=== PATIENT | female | born 1930 | race Two or more races ===

== ENCOUNTER 2017-10-18 14:05 | Inpatient (IN) | payer MEDICARE, MEDICAID ==
[~2017-10-18] VITALS: Ht 152.4 cm; Wt 77.1 kg
[~2017-10-18 14:05] MED LIST: BYSTOLIC 2.5MG2.5 MG ORAL; CULTURELLE1 EACH ORAL; PEPTO-BISM262 MG/15 ORAL; SYNTHROID25 MCG ORAL; Sodium Chloride 500ML 500 ML IV ONE
--- NOTE | 2017-10-18 14:12 | Emergency Room Report ---
History of Present Illness General Source: Family Member, EMS Present Illness HPI The patient presents with syncope. Apparently she's been ill for one week. She 's had nausea vomiting and diarrhea. She's incontinent of urine and stool. She was helped to the ground by family members. There's no trauma. Paramedics found her with low blood pressure 80. They started giving her fluids up. Her blood pressure was better after receiving 100 mils of normal saline IV. There is a language barrier. The patient has a history of hypertension. There was a fall with R shoulder fx several months ago. Still with intermittent pain. Denies pain unless moves arm. No blood in stool. No recent fevers. No cough. Allergies: Coded Allergies: No Known Allergies (Unverified , 03/17/15) Patient History Limited by: language barrier Past Medical History: see triage record, other - fx R shoulder Social History: Denies: smoking Social History Narrative with family - speaks Moroccan Reviewed Nursing Documentation: PMH: Agreed, PSxH: Agreed Nursing Documentation-PMH Hx Cancer: No Hx Gastrointestinal Problems: No Hx Neurological Problems: No Review of Systems All Other Systems: limited Physical Exam Vital Signs Date Time Temp Pulse Resp B/P (MAP) Pulse Ox O2 Delivery O2 Flow Rate FiO2 10/18/17 14:40 98.1 70 18 89/40 95 Room Air Sp02 EP Interpretation: reviewed, abnormal - interpreted low by me General Appearance: well appearing, no apparent distress, GCS 15 Head: normocephalic Eyes: bilateral eye normal inspection, bilateral eye PERRL, bilateral eye EOMI ENT: moist mucus membranes Neck: supple Respiratory: lungs clear, normal breath sounds Cardiovascular #1: regular rate, rhythm Cardiovascular #2: 2+ radial (R) Gastrointestinal: normal inspection, normal bowel sounds, non tender, no mass, non-distended Musculoskeletal: back normal, gait/station normal, normal range of motion - except for R arm, but fairly good PROM with min tenderness Neurologic: alert, oriented x3, slitter and rewinder III-XII nml as tested, motor strength/tone normal, DTRs symmetric, sensory intact, cerebellar normal, speech normal Psychiatric: mood/affect normal Skin: normal inspection, warm/dry Medical Decision Making Diagnostic Impression: Primary Impression: Syncope Qualified Codes: R55 - Syncope and collapse Additional Impressions: Gastroenteritis Hypotension (arterial) Qualified Codes: I95.89 - Other hypotension Hyponatremia ER Course The patient presents with syncope after program of one week's nausea vomiting diarrhea. She was hypertensive in the field. Differential includes acute myocardial infarction, arrhythmia, dehydration, gastroenteritis amongst others. She is a nonfocal neurologic exam at this time and does not require a CT of the head. She was evaluated with EKG, labs and urinalysis and x-ray. She will receive IV hydration and ondansetron. EKG without injury. CXR with tortuous trachea. Labs with normal WBC and H/H. Sodium is low. Stool sent to lab. No WBC. Improved BP with hydration. Evaluated by pipe cutter. Admit med Dr. Cisneros. Laboratory Tests Test 10/18/17 14:50 10/18/17 15:35 White Blood Count 7.5 K/UL (4.8-10.8) Red Blood Count 4.24 M/UL (4.20-5.40) Hemoglobin 12.3 G/DL (12.0-16.0) Hematocrit 37.2 % (37.0-47.0) Mean Corpuscular Volume 88 FL (80-99) Mean Corpuscular Hemoglobin 29.0 PG (27.0-31.0) Mean Corpuscular Hemoglobin Concent 33.1 G/DL (32.0-36.0) Red Cell Distribution Width 12.6 % (11.6-14.8) Platelet Count 245 K/UL (150-450) Mean Platelet Volume 6.2 FL (6.5-10.1) L Neutrophils (%) (Auto) 70.0 % (45.0-75.0) Lymphocytes (%) (Auto) 17.6 % (20.0-45.0) L Monocytes (%) (Auto) 11.4 % (1.0-10.0) H Eosinophils (%) (Auto) 0.6 % (0.0-3.0) Basophils (%) (Auto) 0.4 % (0.0-2.0) Prothrombin Time 10.6 SEC (9.30-11.50) Prothrombin Time INR 1.0 (0.9-1.1) PTT 23 SEC (23-33) Sodium Level 128 MMOL/L (136-145) L Potassium Level 4.0 MMOL/L (3.5-5.1) Chloride Level 94 MMOL/L (98-107) L Carbon Dioxide Level 26 MMOL/L (21-32) Anion Gap 9 mmol/L (5-15) Blood Urea Nitrogen 17 mg/dL (7-18) Creatinine 1.2 MG/DL (0.55-1.30) Estimate Glomerular Filtration Rate mL/min (>60) Glucose Level 129 MG/DL (74-106) H Calcium Level 8.5 MG/DL (8.5-10.1) Total Bilirubin 0.5 MG/DL (0.2-1.0) Aspartate Amino Transferase (AST) 19 U/L (15-37) Alanine Aminotransferase (ALT) 22 U/L (12-78) Alkaline Phosphatase 50 U/L (46-116) Total Creatine Kinase 52 U/L (26-308) Troponin I 0.006 ng/mL (0.000-0.056) Pro-B-Type Natriuretic Peptide 709 pg/mL (0-125) H Total Protein 6.4 G/DL (6.4-8.2) Albumin 3.2 G/DL (3.4-5.0) L Globulin 3.2 g/dL Albumin/Globulin Ratio 1.0 (1.0-2.7) Lipase 279 U/L (73-393) Urine Color Yellow Urine Appearance Clear Urine pH 6 (4.5-8.0) Urine Specific [place] 1.015 (1.005-1.035) Urine Protein 2+ (NEGATIVE) H Urine Glucose (UA) Negative (NEGATIVE) Urine Ketones Negative (NEGATIVE) Urine Occult Blood 1+ (NEGATIVE) H Urine Nitrite Negative (NEGATIVE) Urine Bilirubin Negative (NEGATIVE) Urine Urobilinogen 1 MG/DL (0.0-1.0) H Urine Leukocyte Esterase 1+ (NEGATIVE) H Urine RBC 2-4 /HPF (0 - 2) H Urine WBC 2-4 /HPF (0 - 2) Urine Squamous Epithelial Cells Occasional /LPF Urine Bacteria Occasional /HPF (NONE) Urine Hyaline Casts 5-10 /LPF (NONE) H Urine Other Casts 0-2 /LPF (NONE) H Urine Mucus Moderate /LPF (NONE/OCC) H Microbiology Date/Time Source Procedure Growth Status 10/18/17 15:35 Anus WBC Smear - Final Complete EKG Diagnostic Results Rate: normal Rhythm: NSR ST Segments: no acute changes Rhythm Strip Diag. Results EP Interpretation: yes Rhythm: NSR, no PVC's, no ectopy Chest X-Ray Diagnostic Results Chest X-Ray Diagnostic Results : Chest X-Ray Ordered: Yes # of Views/Limited/Complete: 1 View Indication: Other Interpretation: no consolidation, no effusion, no pneumothorax, other - R shoulder fx Last Vital Signs Date Time Temp Pulse Resp B/P (MAP) Pulse Ox O2 Delivery O2 Flow Rate FiO2 10/18/17 15:15 68 18 117/40 99 Room Air 10/18/17 14:40 98.1 Status: improved Disposition: ADMITTED INPATIENT Condition: Serious Rachid Nazario M.D. Oct 18, 2017 14:12
[2017-10-18] MEDS ORDERED: Tubing IV Cassette IV ONE (14:57)
[2017-10-18 15:09] LABS: BASOPHILS % (AUTO) 0.4 % (0.0-2.0); EOSINOPHILS % (AUTO) 0.6 % (0.0-3.0); HEMATOCRIT 37.2 % (37.0-47.0); HEMOGLOBIN 12.3 G/DL (12.0-16.0); LYMPHOCYTES % (AUTO) 17.6 % (20.0-45.0); MEAN CORPUSCULAR VOLUME 88 FL (80-99); MONOCYTES % (AUTO) 11.4 % (1.0-10.0); PLATELET COUNT 245 K/UL (150-450); RED BLOOD COUNT 4.24 M/UL (4.20-5.40); RED CELL DISTRIBUTION WIDTH 12.6 % (11.6-14.8); WHITE BLOOD COUNT 7.5 K/UL (4.8-10.8)
[2017-10-18 15:15] VITALS: BP 117/40
[2017-10-18 15:26] LABS: ANION GAP 9 mmol/L (5-15); BLOOD UREA NITROGEN 17 mg/dL (7-18); CALCIUM 8.5 MG/DL (8.5-10.1); CARBON DIOXIDE 26 MMOL/L (21-32); CHLORIDE 94 MMOL/L (98-107); CREATININE 1.2 MG/DL (0.55-1.30); SODIUM 128 MMOL/L (136-145)
[2017-10-18 15:37] LABS: ALANINE AMINOTRANSFERASE 22 U/L (12-78); ALBUMIN 3.2 G/DL (3.4-5.0); ALKALINE PHOSPHATASE 50 U/L (46-116); ASPARTATE AMINO TRANSFERASE 19 U/L (15-37); BILIRUBIN,TOTAL 0.5 MG/DL (0.2-1.0); CREATINE KINASE 52 U/L (26-308)
[2017-10-18 15:52] LABS: APPEARANCE,URINE CLEAR; BILIRUBIN, URINE NEGATIVE (NEGATIVE); GLUCOSE, URINE (UA) NEGATIVE (NEGATIVE); KETONES,URINE NEGATIVE (NEGATIVE); LEUKOCYTE ESTERASE ,URINE 1+ (NEGATIVE); NITRITE,URINE NEGATIVE (NEGATIVE); PH,URINE 6 (4.5-8.0); PROTEIN,URINE 2+ (NEGATIVE); UROBILINOGEN,URINE 1 MG/DL (0.0-1.0)
[2017-10-18 15:57] LABS: COLOR,URINE YELLOW
[2017-10-18] MEDS ORDERED: Morphine Sulfate 2mg/ml Inj IVP PRN (17:00)
[2017-10-18] MEDS ORDERED: Albuterol/Ipratropium 3ml neb HHN PRN (17:00)
[2017-10-18] MEDS ORDERED: Miralax 17gm pkt ORAL PRN (17:00)
[2017-10-18 17:30] VITALS: BP 129/32
--- NOTE | 2017-10-18 17:42 | Cardiology Progress Note ---
Assessment/Plan Assessment/Plan [id number] continue ivf trop and orthostatic vital in am Objective Last 24 Hour Vital Signs Date Time Temp Pulse Resp B/P (MAP) Pulse Ox O2 Delivery O2 Flow Rate FiO2 10/18/17 15:15 68 18 117/40 99 Room Air 10/18/17 14:40 98.1 70 18 89/40 95 Room Air Laboratory Tests Test 10/18/17 14:50 10/18/17 15:35 White Blood Count 7.5 K/UL (4.8-10.8) Red Blood Count 4.24 M/UL (4.20-5.40) Hemoglobin 12.3 G/DL (12.0-16.0) Hematocrit 37.2 % (37.0-47.0) Mean Corpuscular Volume 88 FL (80-99) Mean Corpuscular Hemoglobin 29.0 PG (27.0-31.0) Mean Corpuscular Hemoglobin Concent 33.1 G/DL (32.0-36.0) Red Cell Distribution Width 12.6 % (11.6-14.8) Platelet Count 245 K/UL (150-450) Mean Platelet Volume 6.2 FL (6.5-10.1) L Neutrophils (%) (Auto) 70.0 % (45.0-75.0) Lymphocytes (%) (Auto) 17.6 % (20.0-45.0) L Monocytes (%) (Auto) 11.4 % (1.0-10.0) H Eosinophils (%) (Auto) 0.6 % (0.0-3.0) Basophils (%) (Auto) 0.4 % (0.0-2.0) Prothrombin Time 10.6 SEC (9.30-11.50) Prothromb Time International Ratio 1.0 (0.9-1.1) Activated Partial Thromboplast Time 23 SEC (23-33) Sodium Level 128 MMOL/L (136-145) L Potassium Level 4.0 MMOL/L (3.5-5.1) Chloride Level 94 MMOL/L (98-107) L Carbon Dioxide Level 26 MMOL/L (21-32) Anion Gap 9 mmol/L (5-15) Blood Urea Nitrogen 17 mg/dL (7-18) Creatinine 1.2 MG/DL (0.55-1.30) Estimat Glomerular Filtration Rate mL/min (>60) Glucose Level 129 MG/DL (74-106) H Calcium Level 8.5 MG/DL (8.5-10.1) Total Bilirubin 0.5 MG/DL (0.2-1.0) Aspartate Amino Transf (AST/SGOT) 19 U/L (15-37) Alanine Aminotransferase (ALT/SGPT) 22 U/L (12-78) Alkaline Phosphatase 50 U/L (46-116) Total Creatine Kinase 52 U/L (26-308) Troponin I 0.006 ng/mL (0.000-0.056) Pro-B-Type Natriuretic Peptide 709 pg/mL (0-125) H Total Protein 6.4 G/DL (6.4-8.2) Albumin 3.2 G/DL (3.4-5.0) L Globulin 3.2 g/dL Albumin/Globulin Ratio 1.0 (1.0-2.7) Lipase 279 U/L (73-393) Urine Color Yellow Urine Appearance Clear Urine pH 6 (4.5-8.0) Urine Specific [place] 1.015 (1.005-1.035) Urine Protein 2+ (NEGATIVE) H Urine Glucose (UA) Negative (NEGATIVE) Urine Ketones Negative (NEGATIVE) Urine Occult Blood 1+ (NEGATIVE) H Urine Nitrite Negative (NEGATIVE) Urine Bilirubin Negative (NEGATIVE) Urine Urobilinogen 1 MG/DL (0.0-1.0) H Urine Leukocyte Esterase 1+ (NEGATIVE) H Urine RBC 2-4 /HPF (0 - 2) H Urine WBC 2-4 /HPF (0 - 2) Urine Squamous Epithelial Cells Occasional /LPF Urine Bacteria Occasional /HPF (NONE) Urine Hyaline Casts 5-10 /LPF (NONE) H Urine Other Casts 0-2 /LPF (NONE) H Urine Mucus Moderate /LPF (NONE/OCC) H Microbiology Date/Time Source Procedure Growth Status 10/18/17 15:35 Anus WBC Smear - Final Complete MIKKI ABREU Oct 18, 2017 17:42
--- NOTE | 2017-10-18 17:45 | History and Physical ---
History of Present Illness General Date patient seen: Oct 18, 2017 Reason for Hospitalization: Syncope Present Illness HPI 86 year old patient with hx of HTN, hypothyroid, dementia, almost deaf, recent shoulder surgery, presented to [facility] – [place] with CC of syncope. Apparently she's been ill for one week. She's had nausea vomiting and diarrhea. She's incontinent of urine and stool. Paramedics found her with low systolic blood pressure of 80. They started giving her fluids up. She is admitted to telemetry for evaluation of syncope and ALOC. Allergies: Coded Allergies: No Known Allergies (Unverified , 03/17/15) Medication History Scheduled Bysto (Bystolic), 2.5 MG ORAL BID Lactobacillus Rhamnosus Gg* (Culturelle*), 1 TAB ORAL BID Levothyroxine Sodium* (Synthroid*), 25 MCG ORAL DAILY@0630 Scheduled PRN Bismuth Subsalicylate (Pepto-Bismol), 30 ML ORAL Q3H PRN for Diarrhea Miscellaneous Medications Unable to Obtain Medications (Unable To Obtain Meds), (Reported) Patient History Healthcare decision maker Resuscitation status Advanced Directive on File Past Medical/Surgical History Past Medical/Surgical History: (1) Hypothyroid (2) Hypertension (3) Deafness (4) Dementia Review of Systems Constitutional: Reports: no symptoms Eye: Reports: no symptoms ENT: Reports: no symptoms Physical Exam General Appearance: WD/WN Lines, tubes and drains: peripheral HEENT: normocephalic, atraumatic Neck: non-tender, normal alignment Respiratory/Chest: chest wall non-tender, lungs clear Cardiovascular/Chest: normal peripheral pulses, normal rate Abdomen: normal bowel sounds Genitourinary/Rectal: normal genital exam Extremities: normal range of motion Skin Exam: normal pigmentation Neurologic: electric range servicer II-XII grossly normal Last 24 Hour Vital Signs Date Time Temp Pulse Resp B/P (MAP) Pulse Ox O2 Delivery O2 Flow Rate FiO2 10/18/17 15:15 68 18 117/40 99 Room Air 10/18/17 14:40 98.1 70 18 89/40 95 Room Air Laboratory Tests Test 10/18/17 14:50 10/18/17 15:35 White Blood Count 7.5 K/UL (4.8-10.8) Red Blood Count 4.24 M/UL (4.20-5.40) Hemoglobin 12.3 G/DL (12.0-16.0) Hematocrit 37.2 % (37.0-47.0) Mean Corpuscular Volume 88 FL (80-99) Mean Corpuscular Hemoglobin 29.0 PG (27.0-31.0) Mean Corpuscular Hemoglobin Concent 33.1 G/DL (32.0-36.0) Red Cell Distribution Width 12.6 % (11.6-14.8) Platelet Count 245 K/UL (150-450) Mean Platelet Volume 6.2 FL (6.5-10.1) L Neutrophils (%) (Auto) 70.0 % (45.0-75.0) Lymphocytes (%) (Auto) 17.6 % (20.0-45.0) L Monocytes (%) (Auto) 11.4 % (1.0-10.0) H Eosinophils (%) (Auto) 0.6 % (0.0-3.0) Basophils (%) (Auto) 0.4 % (0.0-2.0) Prothrombin Time 10.6 SEC (9.30-11.50) Prothromb Time International Ratio 1.0 (0.9-1.1) Activated Partial Thromboplast Time 23 SEC (23-33) Sodium Level 128 MMOL/L (136-145) L Potassium Level 4.0 MMOL/L (3.5-5.1) Chloride Level 94 MMOL/L (98-107) L Carbon Dioxide Level 26 MMOL/L (21-32) Anion Gap 9 mmol/L (5-15) Blood Urea Nitrogen 17 mg/dL (7-18) Creatinine 1.2 MG/DL (0.55-1.30) Estimat Glomerular Filtration Rate mL/min (>60) Glucose Level 129 MG/DL (74-106) H Calcium Level 8.5 MG/DL (8.5-10.1) Total Bilirubin 0.5 MG/DL (0.2-1.0) Aspartate Amino Transf (AST/SGOT) 19 U/L (15-37) Alanine Aminotransferase (ALT/SGPT) 22 U/L (12-78) Alkaline Phosphatase 50 U/L (46-116) Total Creatine Kinase 52 U/L (26-308) Troponin I 0.006 ng/mL (0.000-0.056) Pro-B-Type Natriuretic Peptide 709 pg/mL (0-125) H Total Protein 6.4 G/DL (6.4-8.2) Albumin 3.2 G/DL (3.4-5.0) L Globulin 3.2 g/dL Albumin/Globulin Ratio 1.0 (1.0-2.7) Lipase 279 U/L (73-393) Urine Color Yellow Urine Appearance Clear Urine pH 6 (4.5-8.0) Urine Specific [place] 1.015 (1.005-1.035) Urine Protein 2+ (NEGATIVE) H Urine Glucose (UA) Negative (NEGATIVE) Urine Ketones Negative (NEGATIVE) Urine Occult Blood 1+ (NEGATIVE) H Urine Nitrite Negative (NEGATIVE) Urine Bilirubin Negative (NEGATIVE) Urine Urobilinogen 1 MG/DL (0.0-1.0) H Urine Leukocyte Esterase 1+ (NEGATIVE) H Urine RBC 2-4 /HPF (0 - 2) H Urine WBC 2-4 /HPF (0 - 2) Urine Squamous Epithelial Cells Occasional /LPF Urine Bacteria Occasional /HPF (NONE) Urine Hyaline Casts 5-10 /LPF (NONE) H Urine Other Casts 0-2 /LPF (NONE) H Urine Mucus Moderate /LPF (NONE/OCC) H Microbiology Date/Time Source Procedure Growth Status 10/18/17 15:35 Anus WBC Smear - Final Complete Height (Feet): 5 Weight (Pounds): 170 Medications Current Medications Medications (Trade) Dose Ordered Sig/Jone Route PRN Reason Start Time Stop Time Status Last Admin Dose Admin Acetaminophen (Tylenol) 650 mg Q4H PRN ORAL fever 10/18/17 17:00 11/17/17 16:59 Albuterol/ Ipratropium (Albuterol/ Ipratropium) 3 ml Q4H PRN HHN Shortness of Breath 10/18/17 17:00 10/23/17 16:59 Cefepime HCl 1 gm/ Dextrose 55 ml @ 110 mls/hr Q24H IVPB 10/18/17 21:00 10/25/17 20:59 UNV Heparin Sodium (Porcine) (Heparin 5000 units/ml) 5,000 units EVERY 12 HOURS SUBQ 10/18/17 21:00 11/17/17 20:59 Levothyroxine Sodium (Synthroid) 25 mcg DAILY@0630 ORAL 10/19/17 06:30 11/18/17 06:29 Morphine Sulfate (Morphine Sulfate) 2 mg Q4H PRN IVP Moderate Pain (Pain Scale 4-6) 10/18/17 17:00 10/25/17 16:59 Ondansetron HCl (Zofran) 4 mg Q6H PRN IVP Nausea & Vomiting 10/18/17 17:00 11/17/17 16:59 Phenazopyridine HCl (Pyridium) 100 mg DAILY PRN ORAL dysuria 10/18/17 17:00 11/17/17 16:59 Polyethylene Glycol (Miralax) 17 gm DAILYPRN PRN ORAL Constipation 10/18/17 17:00 11/17/17 16:59 Sodium Chloride 1,000 ml @ 300 mls/hr Q3H20M IV 10/18/17 14:15 11/17/17 14:14 10/18/17 17:00 Temazepam (Restoril) 15 mg HSPRN PRN ORAL Insomnia 10/18/17 17:00 10/25/17 16:59 Vancomycin HCl (Vanco rx to dose) 1 ea DAILY PRN MISC PER RX 10/18/17 17:15 11/17/17 17:14 Vancomycin HCl 1 gm/Dextrose 275 ml @ 183.3 mls/ hr Q24H IV 10/19/17 00:30 10/24/17 00:29 UNV Assessment/Plan Problem List: (1) Syncope ICD Codes: R55 - Syncope and collapse SNOMED: 650786550 Qualifiers: Qualified Codes: R55 - Syncope and collapse (2) Hyponatremia ICD Codes: E87.1 - Hypo-osmolality and hyponatremia SNOMED: 96352332 (3) Gastroenteritis ICD Codes: K52.9 - Noninfective gastroenteritis and colitis, unspecified SNOMED: 21583557 (4) Anemia ICD Codes: D64.9 - Anemia, unspecified SNOMED: 428009912 (5) Hypothyroid ICD Codes: E03.9 - Hypothyroidism, unspecified SNOMED: 27352780 (6) Hypertension ICD Codes: I10 - Essential (primary) hypertension SNOMED: 19736780 (7) Dementia ICD Codes: F03.90 - Unspecified dementia without behavioral disturbance SNOMED: 02714880 (8) Deafness ICD Codes: H91.90 - Unspecified hearing loss, unspecified ear SNOMED: 40612125 Assessment/Plan IV fluids telemetry monitoring GI w/u monitor BP cardio evaluation echo check Na hyponatremia w/u. RAMIRO CASAREZ Oct 18, 2017 17:45
[2017-10-18 18:00] VITALS: BP_SYST 100; BP_SYST 167; BP_DIAS 50; BP_DIAS 55
[2017-10-18] MEDS ORDERED: UNOBMED (19:11)
[2017-10-18] MEDS: Heparin 5000 units/ml inj SUBQ SCH (21:00)
[2017-10-18] MEDS ORDERED: Cefepime HCl 1 GM in D5W 55 ML IVPB SCH (22:00)
[2017-10-19] VITALS: BP 110/70
[2017-10-19] MEDS ORDERED: Vancomycin 1 GM in D5W 275 ML IVPB ONE ×2
[2017-10-19 01:21] VITALS: BP 138/98
--- NOTE | 2017-10-19 03:45 | Consultation ---
DATE OF CONSULTATION: 10/18/2017 CARDIOLOGY CONSULTATION CONSULTING PHYSICIAN: Dagoberto Galicia M.D. REFERRING PHYSICIAN: Jennifer Cisneros M.D. REASON FOR REFERRAL: Syncope. HISTORY OF PRESENT ILLNESS: This is a [place]-speaking elderly female, who is unable to provide much in terms of history mainly because of language barrier. Only limited information is available from the history of present illness is what was provided to the emergency room physician. The notation indicates the patient has been ill for approximately one week. She has had nausea, vomiting as well as diarrhea and has been incontinent of stool and urine. She has apparently had possibly a syncopal episode, was helped by family members. There was no trauma. Paramedics were summoned. They found the patient's blood pressure to be low in the 80s. Intravenous fluids were administered with improvement in the patient's blood pressure. The patient denies any chest pain or abdominal pain right now. Actually, to me, she denies any vomiting. She indicates she has had a history of significant diarrhea. PAST MEDICAL HISTORY: Positive for history of cellulitis, diarrhea, nausea, vomiting, gastroenteritis, hyponatremia, hypertension, hyperlipidemia, hypothyroidism, and morbid obesity. There is history of cardiac issues of which I am not aware of completely at this time. The patient also has a history of pulmonary fibrosis, osteoarthritis, and osteoporosis. ALLERGIES: She has no known drug allergies. SOCIAL HISTORY: Born in [place]. FAMILY HISTORY: Noncontributory. REVIEW OF SYSTEMS: GASTROINTESTINAL: As mentioned. GENITOURINARY: . PULMONARY: Denies any coughing or wheezing. CONSTITUTIONAL: No fevers. CARDIOVASCULAR: Denies any chest pains or palpitations. PHYSICAL EXAMINATION: GENERAL: Shows to be obese female, in no respiratory distress. NECK: Supple. No jugular venous distention is noted. LUNGS: Clear to auscultation and percussion. CARDIAC: S1 is normal. S2 is normal. Regular rate and rhythm. ABDOMEN: Soft and nontender. Positive bowel sounds. EXTREMITIES: There is no clubbing, cyanosis, or edema. NEUROLOGICAL: She is awake, alert, and responsive. Seems to move all four extremities. LABORATORY AND DIAGNOSTIC DATA: White count 7.5, hemoglobin 12.3, and platelet count 245. Sodium is 128, potassium 4.0, chloride 94, bicarbonate 26, BUN 17, creatinine 1.2, and glucose of 129. Troponin 0.06. ProBNP of 709. The liver function tests being normal. Her coags, INR 1.0 and PTT 23. Urinalysis shows 2 to 4 RBCs and 2 to 4 WBCs. Her EKG shows normal sinus rhythm, normal QRS axis. There is some nonspecific T-wave abnormalities being documented. ASSESSMENT: 1. Possible syncopal episode. 2. Hypotension secondary to volume depletion. 3. Volume depletion secondary to diarrhea and vomiting. 4. Hyponatremia. PLAN: This patient was seen in cardiac consultation. The patient does not seem to have any chest pain at this time. The patient's electrocardiogram is fairly unremarkable except for some nonspecific T-wave abnormalities. We will recommend continuation of intravenous fluids. Her blood pressure last year was listed as 160/64, and her first blood pressure documented here in the emergency room was 89/40 suggestive of volume depletion as a cause of her syncopal episode. She should be monitored on telemetry. Repeat EKG and troponin will be ordered, however, I suspect strongly that her symptoms are likely related to volume depletion secondary to possible gastroenteritis. Dagoberto Galicia M.D. DR: NEREIDA JOB#: [id number] CC:
[2017-10-19] MEDS ORDERED: Cefepime 1gm vial ONE (05:28)
[2017-10-19] MEDS ORDERED: Vancomycin 1gm inj IVPB ONE (05:29)
[2017-10-19] MEDS ORDERED: Levothyroxine 25mcg tab ORAL SCH (06:30)
[2017-10-19 08:00] VITALS: BP 117/57
[2017-10-19] MEDS: Heparin 5000 units/ml inj SUBQ SCH ×2 (08:49→20:58)
[2017-10-19 09:37] LABS: BASOPHILS % (AUTO) 0.6 % (0.0-2.0); EOSINOPHILS % (AUTO) 1.2 % (0.0-3.0); HEMATOCRIT 35.9 % (37.0-47.0); HEMOGLOBIN 11.5 G/DL (12.0-16.0); LYMPHOCYTES % (AUTO) 28.4 % (20.0-45.0); MEAN CORPUSCULAR VOLUME 90 FL (80-99); MONOCYTES % (AUTO) 10.8 % (1.0-10.0); NEUTROPHILS % (AUTO) 59.1 % (45.0-75.0); PLATELET COUNT 215 K/UL (150-450); RED BLOOD COUNT 3.99 M/UL (4.20-5.40); RED CELL DISTRIBUTION WIDTH 13.1 % (11.6-14.8); WHITE BLOOD COUNT 5.7 K/UL (4.8-10.8)
[2017-10-19 10:06] LABS: ALANINE AMINOTRANSFERASE 16 U/L (12-78); ALBUMIN 2.8 G/DL (3.4-5.0); ALBUMIN/GLOBULIN RATIO 0.9 (1.0-2.7); ALKALINE PHOSPHATASE 44 U/L (46-116); ANION GAP 8 mmol/L (5-15); ASPARTATE AMINO TRANSFERASE 18 U/L (15-37); BILIRUBIN,TOTAL 0.4 MG/DL (0.2-1.0); BLOOD UREA NITROGEN 15 mg/dL (7-18); CALCIUM 7.5 MG/DL (8.5-10.1); CARBON DIOXIDE 22 MMOL/L (21-32); CHLORIDE 99 MMOL/L (98-107); POTASSIUM 3.7 MMOL/L (3.5-5.1); SODIUM 129 MMOL/L (136-145)
--- NOTE | 2017-10-19 11:10 | Consultation ---
History of Present Illness General Date patient seen: Oct 19, 2017 Time patient seen: 11:01 Chief Complaint: Syncope Present Illness HPI 86 y/o F with hx of R shoulder fracture (several months ago), HTN, cellulitis, HLD, hypothyroidism, morbid obesity, pulmonary fibrosis, OA and osteoporosis is brought to ED by EMS on 10/18 with syncopal episode. Patient has been feeling ill for 1 week, having nausea, vomiting and diarrhea. EMS found patient with SBP 80s which improved to 100s after IVFs. No f/c, cough, CP, abd pain Afebrile here, no leukocytosis. Cdiff neg. Started on IV Vanco and CEfepime Family refers patient went to [facility] on 10/10 and told she had the Flu- per family no abx given, Rx theraflu- ?tamiflu Allergies: Coded Allergies: No Known Allergies (Unverified , 03/17/15) Medication History Scheduled Bysto (Bystolic), 2.5 MG ORAL BID Lactobacillus Rhamnosus Gg* (Culturelle*), 1 TAB ORAL BID Levothyroxine Sodium* (Synthroid*), 25 MCG ORAL DAILY@0630 Scheduled PRN Bismuth Subsalicylate (Pepto-Bismol), 30 ML ORAL Q3H PRN for Diarrhea Miscellaneous Medications Unable to Obtain Medications (Unable To Obtain Meds), (Reported) Patient History Healthcare decision maker Resuscitation status Advanced Directive on File No Patient History Narrative PHx: as above Shx: Denies: smoking, Russing speaking, born in [place] Fhx: non contributory Review of Systems ROS Narrative L knee pain As per HPI, otherwise negative Physical Exam Physical Exam Narrative GENERAL: Shows to be obese female, in no respiratory distress. NECK: Supple. No jugular venous distention is noted. LUNGS: Clear to auscultation and percussion. CARDIAC: S1 is normal. S2 is normal. Regular rate and rhythm. ABDOMEN: Soft and nontender. Positive bowel sounds. EXTREMITIES: There is no clubbing, cyanosis, or edema. L knee swelling and TTP NEUROLOGICAL: She is awake, alert, and responsive. Seems to move all four extremities. Last 24 Hour Vital Signs Date Time Temp Pulse Resp B/P (MAP) Pulse Ox O2 Delivery O2 Flow Rate FiO2 10/19/17 07:48 75 16 Room Air 21 1/3/18 04:00 76 10/19/17 01:31 98.0 74 18 138/98 97 Room Air 70 10/19/17 01:21 98.0 74 18 138/98 97 Room Air 10/19/17 00:00 98.0 70 18 110/70 97 Room Air 10/18/17 18:00 74 167/55 91 100/50 10/18/17 17:30 98.0 70 18 129/32 97 Room Air 10/18/17 15:15 68 18 117/40 99 Room Air 10/18/17 14:40 98.1 70 18 89/40 95 Room Air Intake and Output 10/18/17 10/19/17 19:00 07:00 Intake Total 0 ml Balance 0 ml Intake Oral 0 ml Laboratory Tests Test 10/18/17 14:50 10/18/17 15:35 10/19/17 08:15 White Blood Count 7.5 K/UL (4.8-10.8) 5.7 K/UL (4.8-10.8) Red Blood Count 4.24 M/UL (4.20-5.40) 3.99 M/UL (4.20-5.40) L Hemoglobin 12.3 G/DL (12.0-16.0) 11.5 G/DL (12.0-16.0) L Hematocrit 37.2 % (37.0-47.0) 35.9 % (37.0-47.0) L Mean Corpuscular Volume 88 FL (80-99) 90 FL (80-99) Mean Corpuscular Hemoglobin 29.0 PG (27.0-31.0) 28.7 PG (27.0-31.0) Mean Corpuscular Hemoglobin Concent 33.1 G/DL (32.0-36.0) 31.9 G/DL (32.0-36.0) L Red Cell Distribution Width 12.6 % (11.6-14.8) 13.1 % (11.6-14.8) Platelet Count 245 K/UL (150-450) 215 K/UL (150-450) Mean Platelet Volume 6.2 FL (6.5-10.1) L 6.0 FL (6.5-10.1) L Neutrophils (%) (Auto) 70.0 % (45.0-75.0) 59.1 % (45.0-75.0) Lymphocytes (%) (Auto) 17.6 % (20.0-45.0) L 28.4 % (20.0-45.0) Monocytes (%) (Auto) 11.4 % (1.0-10.0) H 10.8 % (1.0-10.0) H Eosinophils (%) (Auto) 0.6 % (0.0-3.0) 1.2 % (0.0-3.0) Basophils (%) (Auto) 0.4 % (0.0-2.0) 0.6 % (0.0-2.0) Prothrombin Time 10.6 SEC (9.30-11.50) Prothromb Time International Ratio 1.0 (0.9-1.1) Activated Partial Thromboplast Time 23 SEC (23-33) Sodium Level 128 MMOL/L (136-145) L 129 MMOL/L (136-145) L Potassium Level 4.0 MMOL/L (3.5-5.1) 3.7 MMOL/L (3.5-5.1) Chloride Level 94 MMOL/L (98-107) L 99 MMOL/L (98-107) Carbon Dioxide Level 26 MMOL/L (21-32) 22 MMOL/L (21-32) Anion Gap 9 mmol/L (5-15) 8 mmol/L (5-15) Blood Urea Nitrogen 17 mg/dL (7-18) 15 mg/dL (7-18) Creatinine 1.2 MG/DL (0.55-1.30) 1.0 MG/DL (0.55-1.30) Estimat Glomerular Filtration Rate mL/min (>60) mL/min (>60) Glucose Level 129 MG/DL (74-106) H 138 MG/DL (74-106) H Calcium Level 8.5 MG/DL (8.5-10.1) 7.5 MG/DL (8.5-10.1) L Total Bilirubin 0.5 MG/DL (0.2-1.0) 0.4 MG/DL (0.2-1.0) Aspartate Amino Transf (AST/SGOT) 19 U/L (15-37) 18 U/L (15-37) Alanine Aminotransferase (ALT/SGPT) 22 U/L (12-78) 16 U/L (12-78) Alkaline Phosphatase 50 U/L (46-116) 44 U/L (46-116) L Total Creatine Kinase 52 U/L (26-308) Troponin I 0.006 ng/mL (0.000-0.056) 0.015 ng/mL (0.000-0.056) Pro-B-Type Natriuretic Peptide 709 pg/mL (0-125) H 496 pg/mL (0-125) H Total Protein 6.4 G/DL (6.4-8.2) 5.8 G/DL (6.4-8.2) L Albumin 3.2 G/DL (3.4-5.0) L 2.8 G/DL (3.4-5.0) L Globulin 3.2 g/dL 3.0 g/dL Albumin/Globulin Ratio 1.0 (1.0-2.7) 0.9 (1.0-2.7) L Lipase 279 U/L (73-393) Urine Color Yellow Urine Appearance Clear Urine pH 6 (4.5-8.0) Urine Specific [place] 1.015 (1.005-1.035) Urine Protein 2+ (NEGATIVE) H Urine Glucose (UA) Negative (NEGATIVE) Urine Ketones Negative (NEGATIVE) Urine Occult Blood 1+ (NEGATIVE) H Urine Nitrite Negative (NEGATIVE) Urine Bilirubin Negative (NEGATIVE) Urine Urobilinogen 1 MG/DL (0.0-1.0) H Urine Leukocyte Esterase 1+ (NEGATIVE) H Urine RBC 2-4 /HPF (0 - 2) H Urine WBC 2-4 /HPF (0 - 2) Urine Squamous Epithelial Cells Occasional /LPF Urine Bacteria Occasional /HPF (NONE) Urine Hyaline Casts 5-10 /LPF (NONE) H Urine Other Casts 0-2 /LPF (NONE) H Urine Mucus Moderate /LPF (NONE/OCC) H Osmolality Pending Uric Acid Pending Magnesium Level 1.6 MG/DL (1.8-2.4) L Thyroid Stimulating Hormone (TSH) Pending Free Thyroxine Pending Free Triiodothyronine Pending Cortisol Pending Microbiology Date/Time Source Procedure Growth Status 10/18/17 15:35 Stool Clostridium difficile Toxin Assay - Final Complete 10/18/17 15:35 Anus WBC Smear - Final Complete Height (Feet): 5 Height (Inches): 0.00 Weight (Pounds): 170 Medications Current Medications Medications (Trade) Dose Ordered Sig/Jone Route PRN Reason Start Time Stop Time Status Last Admin Dose Admin Acetaminophen (Tylenol) 650 mg Q4H PRN ORAL fever 10/18/17 17:00 11/17/17 16:59 Albuterol/ Ipratropium (Albuterol/ Ipratropium) 3 ml Q4H PRN HHN Shortness of Breath 10/18/17 17:00 10/23/17 16:59 Cefepime HCl 1 gm/ Dextrose 55 ml @ 110 mls/hr Q24H IVPB 10/18/17 22:00 10/25/17 21:59 10/19/17 05:40 Heparin Sodium (Porcine) (Heparin 5000 units/ml) 5,000 units EVERY 12 HOURS SUBQ 10/18/17 21:00 11/17/17 20:59 10/19/17 08:49 Levothyroxine Sodium (Synthroid) 25 mcg DAILY@0630 ORAL 10/19/17 06:30 11/18/17 06:29 10/19/17 08:48 Morphine Sulfate (Morphine Sulfate) 2 mg Q4H PRN IVP Moderate Pain (Pain Scale 4-6) 10/18/17 17:00 10/25/17 16:59 Ondansetron HCl (Zofran) 4 mg Q6H PRN IVP Nausea & Vomiting 10/18/17 17:00 11/17/17 16:59 Phenazopyridine HCl (Pyridium) 100 mg DAILY PRN ORAL dysuria 10/18/17 17:00 11/17/17 16:59 Polyethylene Glycol (Miralax) 17 gm DAILYPRN PRN ORAL Constipation 10/18/17 17:00 11/17/17 16:59 Sodium Chloride 1,000 ml @ 300 mls/hr Q3H20M IV 10/18/17 14:15 11/17/17 14:14 10/18/17 17:00 Temazepam (Restoril) 15 mg HSPRN PRN ORAL Insomnia 10/18/17 17:00 10/25/17 16:59 Vancomycin HCl (Vanco rx to dose) 1 ea DAILY PRN MISC PER RX 10/18/17 17:15 11/17/17 17:14 Assessment/Plan Assessment/Plan Abx: IV Vanco 2- Cefepime /2- Assessment: Diarrhea- possible viral vs bacterial process, r/o Flu, r/o colitis -CDiff neg Afebrile, no leukocytosis -u/a neg ?REcent dx of Influenza at [facility]- unclear if traeted with Tamiflu (family said theraflu but it may have been tamiflu) ?Syncopal episode L knee pain- r/o fracture R shoulder fracture (several months ago), HTN, cellulitis, HLD, hypothyroidism , morbid obesity, pulmonary fibrosis, OA and osteoporosis Plan: -d/c IV Vanco and Cefepime #2 and switch to Ceftriaxone and Flagyl and start empiric Tamiflu pending flu -Influenza test -f/u Bcx, stool cx -xray L knee -Monitor CBC/BMP, temperatures -low threshold for CT abd/p if bloody stool, abd pain Thank you for this consultation. Will continue to follow along with you. Discussed with RN and family at bedside. Neli Shabazz M.D. Oct 19, 2017 11:10
[2017-10-19 12:00] VITALS: BP 158/73
--- NOTE | 2017-10-19 12:03 | Diagnostic Imaging Report ---
Indication: Shortness of breath Technique: One view of the chest Comparison: 06/27/2006 Findings: Mild interstitial prominence and central bronchial wall thickening are probably on the basis of senescent changes. No definite acute infiltrates, effusions, or congestion. There is a chronic appearing but ununited right humeral fracture. Atelectasis or scarring is seen in the left midlung Impression: No definite acute process. Findings as noted
[2017-10-19] MEDS: metroNIDAZOLE 500mg tab ORAL SCH ×3 (12:32→21:45)
--- NOTE | 2017-10-19 12:51 | Consultation ---
Consult Note Consult Note Asked to eval for low Na, The patient presents with syncope. Apparently she's been ill for one week. She 's had nausea vomiting and diarrhea. She's incontinent of urine and stool. She was helped to the ground by family members. There's no trauma. Paramedics found her with low blood pressure 80. They started giving her fluids up. Her blood pressure was better after receiving 100 mils of normal saline IV. There is a language barrier. The patient has a history of hypertension. There was a fall with R shoulder fx several months ago. Still with intermittent pain. Denies pain unless moves arm. No blood in stool. No recent fevers. No cough. Limited by: language barrier Social History Narrative with family - speaks Faroese PH: Gastroenteritis secondary to food-borne illness. Dehydration. Hyponatremia. Anemia. Hypertension. Hyperlipidemia. patient examined- data reviewed Assessment/Plan status: Low na, doubt depletional as Renal parameters WNL HypoTension on arrival likely Volume depletion, leading to syncope Vomiting and Diarrhea Low Mag and Low ca Sugg: Saline IV check Kusum U os Uric Acid monitor grace Vit D Mag per orders JAC ZARAGOZA Oct 19, 2017 12:52
--- NOTE | 2017-10-19 13:52 | Pulmonology Progress Note ---
Assessment/Plan Problems: (1) Syncope (2) Hyponatremia (3) Gastroenteritis (4) Anemia (5) Hypothyroid (6) Hypertension (7) Dementia (8) Deafness Assessment/Plan Na better continue fluids check electrolytes pt/ot advance diet dvt prophylaxis Subjective ROS Limited/Unobtainable: No Interval Events: feeling better Constitutional: Reports: no symptoms HEENT: Repors: no symptoms Allergies: Coded Allergies: No Known Allergies (Unverified , 03/17/15) Objective Last 24 Hour Vital Signs Date Time Temp Pulse Resp B/P (MAP) Pulse Ox O2 Delivery O2 Flow Rate FiO2 10/19/17 07:48 75 16 Room Air 21 10/19/17 04:00 76 10/19/17 01:31 98.0 74 18 138/98 97 Room Air 70 10/19/17 01:21 98.0 74 18 138/98 97 Room Air 10/19/17 00:00 98.0 70 18 110/70 97 Room Air 10/18/17 18:00 74 167/55 91 100/50 10/18/17 17:30 98.0 70 18 129/32 97 Room Air 10/18/17 15:15 68 18 117/40 99 Room Air 10/18/17 14:40 98.1 70 18 89/40 95 Room Air Intake and Output 10/18/17 10/19/17 19:00 07:00 Intake Total 0 ml Balance 0 ml Intake Oral 0 ml General Appearance: WD/WN HEENT: normocephalic, atraumatic Respiratory/Chest: chest wall non-tender, lungs clear Breasts: no masses Cardiovascular: normal peripheral pulses Abdomen: normal bowel sounds, soft, non tender Genitourinary: normal external genitalia Extremities: no cyanosis Skin: no rash Microbiology Date/Time Source Procedure Growth Status 10/18/17 15:35 Stool Clostridium difficile Toxin Assay - Final Complete 10/18/17 15:35 Anus WBC Smear - Final Complete Laboratory Tests 10/18/17 14:50: White Blood Count 7.5, Red Blood Count 4.24, Hemoglobin 12.3, Hematocrit 37.2, Mean Corpuscular Volume 88, Mean Corpuscular Hemoglobin 29.0, Mean Corpuscular Hemoglobin Concent 33.1, Red Cell Distribution Width 12.6, Platelet Count 245, Mean Platelet Volume 6.2L, Neutrophils (%) (Auto) 70.0, Lymphocytes (%) (Auto) 17.6L, Monocytes (%) (Auto) 11.4H, Eosinophils (%) (Auto) 0.6, Basophils (%) ( Auto) 0.4, Prothrombin Time 10.6, Prothromb Time International Ratio 1.0, Activated Partial Thromboplast Time 23, Sodium Level 128L, Potassium Level 4.0, Chloride Level 94L, Carbon Dioxide Level 26, Anion Gap 9, Blood Urea Nitrogen 17 , Creatinine 1.2, Estimat Glomerular Filtration Rate , Glucose Level 129H, Calcium Level 8.5, Total Bilirubin 0.5, Aspartate Amino Transf (AST/SGOT) 19, Alanine Aminotransferase (ALT/SGPT) 22, Alkaline Phosphatase 50, Total Creatine Kinase 52, Troponin I 0.006, Pro-B-Type Natriuretic Peptide 709H, Total Protein 6.4, Albumin 3.2L, Globulin 3.2, Albumin/Globulin Ratio 1.0, Lipase 279 10/18/17 15:35: Urine Color Yellow, Urine Appearance Clear, Urine pH 6, Urine Specific [place] 1.015, Urine Protein 2+H, Urine Glucose (UA) Negative, Urine Ketones Negative, Urine Occult Blood 1+H, Urine Nitrite Negative, Urine Bilirubin Negative, Urine Urobilinogen 1H, Urine Leukocyte Esterase 1+H, Urine RBC 2-4H, Urine WBC 2-4, Urine Squamous Epithelial Cells Occasional, Urine Bacteria Occasional, Urine Hyaline Casts 5-10H, Urine Other Casts 0-2H, Urine Mucus ModerateH 10/19/17 08:15: White Blood Count 5.7, Red Blood Count 3.99L, Hemoglobin 11.5L, Hematocrit 35.9L , Mean Corpuscular Volume 90, Mean Corpuscular Hemoglobin 28.7, Mean Corpuscular Hemoglobin Concent 31.9L, Red Cell Distribution Width 13.1, Platelet Count 215, Mean Platelet Volume 6.0L, Neutrophils (%) (Auto) 59.1, Lymphocytes (%) (Auto) 28.4, Monocytes (%) (Auto) 10.8H, Eosinophils (%) (Auto) 1.2, Basophils (%) (Auto) 0.6, Sodium Level 129L, Potassium Level 3.7, Chloride Level 99, Carbon Dioxide Level 22, Anion Gap 8, Blood Urea Nitrogen 15, Creatinine 1.0, Estimat Glomerular Filtration Rate , Glucose Level 138H, Calcium Level 7.5L, Total Bilirubin 0.4, Aspartate Amino Transf (AST/SGOT) 18, Alanine Aminotransferase (ALT/SGPT) 16, Alkaline Phosphatase 44L, Troponin I 0.015, Pro-B-Type Natriuretic Peptide 496H, Total Protein 5.8L, Albumin 2.8L, Globulin 3.0, Albumin/Globulin Ratio 0.9L, Osmolality 273L, Uric Acid 5.1, Magnesium Level 1.6L, Thyroid Stimulating Hormone (TSH) 1.626, Free Thyroxine 1.46, Free Triiodothyronine 1.9L, Cortisol [Pending] Current Medications Medications (Trade) Dose Ordered Sig/Jone Route PRN Reason Start Time Stop Time Status Last Admin Dose Admin Acetaminophen (Tylenol) 650 mg Q4H PRN ORAL fever 10/18/17 17:00 11/17/17 16:59 Albuterol/ Ipratropium (Albuterol/ Ipratropium) 3 ml Q4H PRN HHN Shortness of Breath 10/18/17 17:00 10/23/17 16:59 Ceftriaxone Sodium 1 gm/ Dextrose 55 ml @ 110 mls/hr Q24H IVPB 10/20/17 06:00 10/27/17 05:59 Ergocalciferol (Drisdol) 50,000 intlu QWEEK ORAL 10/19/17 14:00 11/18/17 13:59 Heparin Sodium (Porcine) (Heparin 5000 units/ml) 5,000 units EVERY 12 HOURS SUBQ 10/18/17 21:00 11/17/17 20:59 10/19/17 08:49 Levothyroxine Sodium (Synthroid) 25 mcg DAILY@0630 ORAL 10/19/17 06:30 11/18/17 06:29 10/19/17 08:48 Magnesium Sulfate 100 ml @ 100 mls/hr Q1H IVPB 10/19/17 14:00 10/19/17 15:59 Metronidazole (Flagyl) 500 mg Q8HR ORAL 10/19/17 12:00 10/26/17 11:59 10/19/17 12:32 Morphine Sulfate (Morphine Sulfate) 2 mg Q4H PRN IVP Moderate Pain (Pain Scale 4-6) 10/18/17 17:00 10/25/17 16:59 Ondansetron HCl (Zofran) 4 mg Q6H PRN IVP Nausea & Vomiting 10/18/17 17:00 11/17/17 16:59 Oseltamivir Phosphate (Tamiflu) 30 mg DAILY ORAL 10/19/17 13:00 10/24/17 12:59 Polyethylene Glycol (Miralax) 17 gm DAILYPRN PRN ORAL Constipation 10/18/17 17:00 11/17/17 16:59 Sodium Chloride 1,000 ml @ 100 mls/hr Q10H IV 10/19/17 14:15 11/18/17 14:14 Temazepam (Restoril) 15 mg HSPRN PRN ORAL Insomnia 10/18/17 17:00 10/25/17 16:59 RAMIRO CASAREZ Oct 19, 2017 13:52
[2017-10-19] MEDS ORDERED: Vitamin D 50,000 units cap ORAL SCH (14:00)
--- NOTE | 2017-10-19 14:12 | Diagnostic Imaging Report ---
Indication: Reason For Exam: PAIN Technique: 3 views of the left knee Comparison: None Findings: No suprapatellar effusion. No acute fractures. No dislocations. There is mild medial compartmental degenerative joint space narrowing. There is minimal lateral compartmental and patellofemoral degenerative proliferative change. No acute fractures. No dislocations. Impression: Mild degenerative changes. No acute bony trauma
[2017-10-19 16:00] VITALS: BP 167/75
--- NOTE | 2017-10-19 16:03 | Cardiology Report ---
APPROVED REPORT EKG Measurement Heart [id number] Normal sinus rhythm Normal ECG
--- NOTE | 2017-10-19 16:07 | Cardiology Report ---
APPROVED REPORT EKG Measurement Heart [id number] [place] [id number] Normal sinus rhythm Normal ECG
--- NOTE | 2017-10-19 16:21 | GI Initial Consult Note ---
Kylah Arango N.P. 10/19/17 1621: History of Present Illness General Date patient seen: Oct 19, 2017 Time patient seen: 16:14 Reason for Hospitalization: Syncope Referring physician: ADRIANA VERA Reason for Consultation: N/V/D Present Illness HPI The patient presents with syncope. Apparently she's been ill for one week. She 's had nausea vomiting and diarrhea. She's incontinent of urine and stool. She was helped to the ground by family members. There's no trauma. Paramedics found her with low blood pressure 80. They started giving her fluids up. Her blood pressure was better after receiving 100 mils of normal saline IV. There is a language barrier. The patient has a history of hypertension. There was a fall with R shoulder fx several months ago. Still with intermittent pain. Denies pain unless moves arm. No blood in stool. No recent fevers. No cough. GI consulted for possible gastroenteritis. HPI noted above. Pt seen on floor , awake A&Ox4 NAD with no active s/sx of N/V/D. Per RN report, patient has had no episodes of emesis or diarrhea. She currently receiving fluids, resting comfortably in bed. Pt no longer hypotensive. Unknown history of endoscopy / colonoscopies. Home Meds Active Scripts Bysto (Bystolic) 2.5 Mg Tab, 2.5 MG ORAL BID for 30 Days, TAB Prov:MIKKI ABREU 03/17/15 Levothyroxine Sodium* (SYNTHROID*) 25 Mcg Tab, 25 MCG ORAL DAILY@0630, #30 TAB Prov:MIKKI ABREU 03/17/15 Lactobacillus Rhamnosus Gg* (CULTURELLE*) 1 Tab Tab, 1 TAB ORAL BID for 14 Days , CAP Prov:MIKKI ABREU 03/17/15 Bismuth Subsalicylate (PEPTO-BISMOL) 30 Ml Susp, 30 ML ORAL Q3H Y for Diarrhea for 7 Days, ML Prov:MIKKI ABREU 03/17/15 Reported Medications Unable to Obtain Medications (UNABLE TO OBTAIN MEDS) 1 Ea Ea 10/18/17 Med list reviewed/reconciled: Yes Allergies: Coded Allergies: No Known Allergies (Unverified , 03/17/15) Patient History Limited by: language barrier History Provided By: Medical Record PMH Narrative Limited by: language barrier Past Medical History: see triage record, other - fx R shoulder Social History: Denies: smoking Social History Narrative with family - speaks Cambodian Reviewed Nursing Documentation: PMH: Agreed, PSxH: Agreed Nursing Documentation-PMH Hx Cancer: No Hx Gastrointestinal Problems: No Hx Neurological Problems: No Social History: Denies: smoking, alcohol use, drug use, other Review of Systems All Other Systems: negative except mentioned in HPI Physical Exam Vital Signs Date Time Temp Pulse Resp B/P (MAP) Pulse Ox O2 Delivery O2 Flow Rate FiO2 10/18/17 14:40 98.1 70 18 89/40 95 Room Air 10/19/17 07:48 21 Sp02 EP Interpretation: reviewed, normal Labs Laboratory Tests Test 10/19/17 08:15 White Blood Count 5.7 K/UL (4.8-10.8) Red Blood Count 3.99 M/UL (4.20-5.40) L Hemoglobin 11.5 G/DL (12.0-16.0) L Hematocrit 35.9 % (37.0-47.0) L Mean Corpuscular Volume 90 FL (80-99) Mean Corpuscular Hemoglobin 28.7 PG (27.0-31.0) Mean Corpuscular Hemoglobin Concent 31.9 G/DL (32.0-36.0) L Red Cell Distribution Width 13.1 % (11.6-14.8) Platelet Count 215 K/UL (150-450) Mean Platelet Volume 6.0 FL (6.5-10.1) L Neutrophils (%) (Auto) 59.1 % (45.0-75.0) Lymphocytes (%) (Auto) 28.4 % (20.0-45.0) Monocytes (%) (Auto) 10.8 % (1.0-10.0) H Eosinophils (%) (Auto) 1.2 % (0.0-3.0) Basophils (%) (Auto) 0.6 % (0.0-2.0) Sodium Level 129 MMOL/L (136-145) L Potassium Level 3.7 MMOL/L (3.5-5.1) Chloride Level 99 MMOL/L (98-107) Carbon Dioxide Level 22 MMOL/L (21-32) Anion Gap 8 mmol/L (5-15) Blood Urea Nitrogen 15 mg/dL (7-18) Creatinine 1.0 MG/DL (0.55-1.30) Estimat Glomerular Filtration Rate mL/min (>60) Glucose Level 138 MG/DL (74-106) H Osmolality 273 mOsm/kg (297-317) L Uric Acid 5.1 MG/DL (2.6-7.2) Calcium Level 7.5 MG/DL (8.5-10.1) L Magnesium Level 1.6 MG/DL (1.8-2.4) L Total Bilirubin 0.4 MG/DL (0.2-1.0) Aspartate Amino Transf (AST/SGOT) 18 U/L (15-37) Alanine Aminotransferase (ALT/SGPT) 16 U/L (12-78) Alkaline Phosphatase 44 U/L (46-116) L Troponin I 0.015 ng/mL (0.000-0.056) Pro-B-Type Natriuretic Peptide 496 pg/mL (0-125) H Total Protein 5.8 G/DL (6.4-8.2) L Albumin 2.8 G/DL (3.4-5.0) L Globulin 3.0 g/dL Albumin/Globulin Ratio 0.9 (1.0-2.7) L Thyroid Stimulating Hormone (TSH) 1.626 uiU/mL (0.358-3.740) Free Thyroxine 1.46 NG/DL (0.76-1.46) Free Triiodothyronine 1.9 pg/mL (2.3-4.2) L Cortisol Pending General Appearance: well appearing, no apparent distress, alert, other - overweight Head: normocephalic EENT: PERRL/EOMI, normal ENT inspection Neck: supple Respiratory: normal breath sounds, no respiratory distress Cardiovascular: normal rate Gastrointestinal: normal inspection, non tender, soft, normal bowel sounds, non -distended Rectal: deferred Genitourinary: no CVA tenderness Musculoskeletal: normal inspection, back normal Neurologic: normal inspection, alert, oriented x3, responsive Psychiatric: normal inspection, judgement/insight normal, memory normal Skin: normal inspection, normal color, no rash, warm/dry, palpation normal, well hydrated Lymphatic: normal inspection, no adenopathy Current Medications Current Medications Medications (Trade) Dose Ordered Sig/Jone Route PRN Reason Start Time Stop Time Status Last Admin Dose Admin Acetaminophen (Tylenol) 650 mg Q4H PRN ORAL fever 10/18/17 17:00 11/17/17 16:59 Albuterol/ Ipratropium (Albuterol/ Ipratropium) 3 ml Q4H PRN HHN Shortness of Breath 10/18/17 17:00 10/23/17 16:59 Ceftriaxone Sodium 1 gm/ Dextrose 55 ml @ 110 mls/hr Q24H IVPB 10/20/17 06:00 10/27/17 05:59 Ergocalciferol (Drisdol) 50,000 intlu QWEEK ORAL 10/19/17 14:00 11/18/17 13:59 10/19/17 13:50 Heparin Sodium (Porcine) (Heparin 5000 units/ml) 5,000 units EVERY 12 HOURS SUBQ 10/18/17 21:00 11/17/17 20:59 10/19/17 08:49 Levothyroxine Sodium (Synthroid) 25 mcg DAILY@0630 ORAL 10/19/17 06:30 11/18/17 06:29 10/19/17 08:48 Metronidazole (Flagyl) 500 mg Q8HR ORAL 10/19/17 12:00 10/26/17 11:59 10/19/17 15:56 Morphine Sulfate (Morphine Sulfate) 2 mg Q4H PRN IVP Moderate Pain (Pain Scale 4-6) 10/18/17 17:00 10/25/17 16:59 Ondansetron HCl (Zofran) 4 mg Q6H PRN IVP Nausea & Vomiting 10/18/17 17:00 11/17/17 16:59 Oseltamivir Phosphate (Tamiflu) 30 mg DAILY ORAL 10/19/17 13:00 10/24/17 12:59 10/19/17 15:11 Polyethylene Glycol (Miralax) 17 gm DAILYPRN PRN ORAL Constipation 10/18/17 17:00 11/17/17 16:59 Sodium Chloride 1,000 ml @ 100 mls/hr Q10H IV 10/19/17 14:15 11/18/17 14:14 10/19/17 14:21 Temazepam (Restoril) 15 mg HSPRN PRN ORAL Insomnia 10/18/17 17:00 10/25/17 16:59 GI: Plan Problems: (1) Electrolyte imbalance (2) Gastroenteritis (3) Anemia (4) Hyponatremia (5) Hypothyroid (6) Dehydration Plan supportive care at this time anemia work up zofran prn monitor BP medications PO/IV hydration + electrolyte correction collect stool studies if patient has persistent diarrhea, ok for imodium prn after collection adv to low residual diet abx fu labs outpatient GI procedures Discussed with Dr. Peterson. Thank you for this patient referral, we will follow. YOCASTA PETERSON 10/20/17 0905: History of Present Illness General Reason for Hospitalization: Syncope Present Illness Home Meds Active Scripts Bysto (Bystolic) 2.5 Mg Tab, 2.5 MG ORAL BID for 30 Days, TAB Prov:MIKKI ABREU 03/17/15 Levothyroxine Sodium* (SYNTHROID*) 25 Mcg Tab, 25 MCG ORAL DAILY@0630, #30 TAB Prov:MIKKI ABREU 03/17/15 Lactobacillus Rhamnosus Gg* (CULTURELLE*) 1 Tab Tab, 1 TAB ORAL BID for 14 Days , CAP Prov:MIKKI ABREU 03/17/15 Bismuth Subsalicylate (PEPTO-BISMOL) 30 Ml Susp, 30 ML ORAL Q3H Y for Diarrhea for 7 Days, ML Prov:MIKKI ABREU 03/17/15 Reported Medications Unable to Obtain Medications (UNABLE TO OBTAIN MEDS) 1 Ea Ea 10/18/17 Allergies: Coded Allergies: No Known Allergies (Unverified , 03/17/15) GI: Plan Plan The patient was seen and examined at bedside and all new and available data was reviewed in the patients chart. I agree with the above findings, impression and plan. (Patient seen earlier today. Signature stamp does not reflect patient encounter time.). - MD Conchita Scott,Kylah Esteban N.PKenny Oct 19, 2017 16:21 YOCASTA PETERSON Oct 20, 2017 09:05
--- NOTE | 2017-10-19 19:17 | Cardiology Progress Note ---
Assessment/Plan Assessment/Plan 1. Possible syncopal episode. 2. Hypotension secondary to volume depletion. 3. Volume depletion secondary to diarrhea and vomiting. 4. Hyponatremia. na min better despite all the ivf sthe received tele sinus trop neg await echo electolyte supplement bp much improved as expected Subjective Cardiovascular: Denies: chest pain Respiratory: Denies: shortness of breath Gastrointestinal/Abdominal: Denies: abdominal pain Genitourinary: Denies: burning Objective Last 24 Hour Vital Signs Date Time Temp Pulse Resp B/P (MAP) Pulse Ox O2 Delivery O2 Flow Rate FiO2 10/19/17 16:00 97.2 72 19 167/75 93 Room Air 10/19/17 16:00 66 10/19/17 12:00 69 10/19/17 12:00 97.8 75 19 158/73 93 Room Air 10/19/17 08:00 97.7 81 19 117/57 95 Room Air 10/19/17 07:48 75 16 Room Air 21 10/19/17 04:00 76 10/19/17 01:31 98.0 74 18 138/98 97 Room Air 70 10/19/17 01:21 98.0 74 18 138/98 97 Room Air 10/19/17 00:00 98.0 70 18 110/70 97 Room Air General Appearance: no apparent distress, alert, obese Cardiovascular: normal rate, regular rhythm Respiratory/Chest: lungs clear, normal breath sounds Abdomen: non tender, soft Extremities: no swelling Intake and Output 10/18/17 10/19/17 19:00 07:00 Intake Total 0 ml Balance 0 ml Intake Oral 0 ml Laboratory Tests Test 10/19/17 08:15 White Blood Count 5.7 K/UL (4.8-10.8) Red Blood Count 3.99 M/UL (4.20-5.40) L Hemoglobin 11.5 G/DL (12.0-16.0) L Hematocrit 35.9 % (37.0-47.0) L Mean Corpuscular Volume 90 FL (80-99) Mean Corpuscular Hemoglobin 28.7 PG (27.0-31.0) Mean Corpuscular Hemoglobin Concent 31.9 G/DL (32.0-36.0) L Red Cell Distribution Width 13.1 % (11.6-14.8) Platelet Count 215 K/UL (150-450) Mean Platelet Volume 6.0 FL (6.5-10.1) L Neutrophils (%) (Auto) 59.1 % (45.0-75.0) Lymphocytes (%) (Auto) 28.4 % (20.0-45.0) Monocytes (%) (Auto) 10.8 % (1.0-10.0) H Eosinophils (%) (Auto) 1.2 % (0.0-3.0) Basophils (%) (Auto) 0.6 % (0.0-2.0) Sodium Level 129 MMOL/L (136-145) L Potassium Level 3.7 MMOL/L (3.5-5.1) Chloride Level 99 MMOL/L (98-107) Carbon Dioxide Level 22 MMOL/L (21-32) Anion Gap 8 mmol/L (5-15) Blood Urea Nitrogen 15 mg/dL (7-18) Creatinine 1.0 MG/DL (0.55-1.30) Estimat Glomerular Filtration Rate mL/min (>60) Glucose Level 138 MG/DL (74-106) H Osmolality 273 mOsm/kg (297-317) L Uric Acid 5.1 MG/DL (2.6-7.2) Calcium Level 7.5 MG/DL (8.5-10.1) L Magnesium Level 1.6 MG/DL (1.8-2.4) L Total Bilirubin 0.4 MG/DL (0.2-1.0) Aspartate Amino Transf (AST/SGOT) 18 U/L (15-37) Alanine Aminotransferase (ALT/SGPT) 16 U/L (12-78) Alkaline Phosphatase 44 U/L (46-116) L Troponin I 0.015 ng/mL (0.000-0.056) Pro-B-Type Natriuretic Peptide 496 pg/mL (0-125) H Total Protein 5.8 G/DL (6.4-8.2) L Albumin 2.8 G/DL (3.4-5.0) L Globulin 3.0 g/dL Albumin/Globulin Ratio 0.9 (1.0-2.7) L Thyroid Stimulating Hormone (TSH) 1.626 uiU/mL (0.358-3.740) Free Thyroxine 1.46 NG/DL (0.76-1.46) Free Triiodothyronine 1.9 pg/mL (2.3-4.2) L Cortisol Pending Microbiology Date/Time Source Procedure Growth Status 10/19/17 15:00 Nasal Nares Influenza Types A,B Antigen (BRIAN) - Final Complete 10/18/17 15:35 Stool Clostridium difficile Toxin Assay - Final Complete 10/18/17 15:35 Anus WBC Smear - Final Complete MIKKI ABREU Oct 19, 2017 19:17
[2017-10-19 20:00] VITALS: BP 115/51
[2017-10-20] VITALS (8 sets, daily range): BP systolic 153–200; BP diastolic 74–95
[2017-10-20] MEDS ORDERED: Albuterol/Ipratropium 3ml neb HHN PRN (01:00)
[2017-10-20] MEDS ORDERED: Morphine Sulfate 2mg/ml Inj IVP PRN (01:00)
[2017-10-20] MEDS ORDERED: cefTRIAXone 1 GM in D5W 55 ML IVPB SCH ×4 (06:00)
[2017-10-20] MEDS: Levothyroxine 25mcg tab ORAL SCH (06:09)
[2017-10-20] MEDS: metroNIDAZOLE 500mg tab ORAL SCH ×2 (06:09→14:11)
[2017-10-20 06:48] LABS: BASOPHILS % (AUTO) 0.9 % (0.0-2.0); EOSINOPHILS % (AUTO) 1.7 % (0.0-3.0); HEMATOCRIT 32.6 % (37.0-47.0); HEMOGLOBIN 10.9 G/DL (12.0-16.0); LYMPHOCYTES % (AUTO) 29.6 % (20.0-45.0); MEAN CORPUSCULAR VOLUME 90 FL (80-99); MONOCYTES % (AUTO) 14.7 % (1.0-10.0); NEUTROPHILS % (AUTO) 53.2 % (45.0-75.0); PLATELET COUNT 203 K/UL (150-450); RED BLOOD COUNT 3.62 M/UL (4.20-5.40); RED CELL DISTRIBUTION WIDTH 13.3 % (11.6-14.8); WHITE BLOOD COUNT 4.9 K/UL (4.8-10.8)
[2017-10-20 07:23] LABS: ALANINE AMINOTRANSFERASE 15 U/L (12-78); ALBUMIN 2.6 G/DL (3.4-5.0); ALBUMIN/GLOBULIN RATIO 0.9 (1.0-2.7); ALKALINE PHOSPHATASE 40 U/L (46-116); ANION GAP 8 mmol/L (5-15); ASPARTATE AMINO TRANSFERASE 14 U/L (15-37); BILIRUBIN,TOTAL 0.4 MG/DL (0.2-1.0); BLOOD UREA NITROGEN 11 mg/dL (7-18); CALCIUM 7.2 MG/DL (8.5-10.1); CARBON DIOXIDE 24 MMOL/L (21-32); CHLORIDE 101 MMOL/L (98-107); CREATININE 0.9 MG/DL (0.55-1.30); POTASSIUM 3.7 MMOL/L (3.5-5.1); SODIUM 133 MMOL/L (136-145)
[2017-10-20 07:49] LABS: PHOSPHORUS 2.1 MG/DL (2.5-4.9)
[2017-10-20 08:18] LABS: % IRON SATURATION 14 % (15-50); IRON 38 ug/dL (50-175); TOTAL IRON BINDING CAPACITY 278 ug/dL (250-450)
[2017-10-20] MEDS: Heparin 5000 units/ml inj SUBQ SCH ×2 (08:47→20:57)
[2017-10-20] MEDS: Bystolic 2.5mg Tab ORAL SCH ×3 (08:52→20:56)
--- NOTE | 2017-10-20 10:26 | GI Progress Note ---
Assessment/Plan Problems: (1) Electrolyte imbalance ICD Codes: E87.8 - Other disorders of electrolyte and fluid balance, not elsewhere classified SNOMED: 984410836 (2) Dehydration ICD Codes: E86.0 - Dehydration SNOMED: 07803368 (3) Hyponatremia ICD Codes: E87.1 - Hypo-osmolality and hyponatremia SNOMED: 43325110 (4) Gastroenteritis ICD Codes: K52.9 - Noninfective gastroenteritis and colitis, unspecified SNOMED: 59470409 (5) Anemia ICD Codes: D64.9 - Anemia, unspecified SNOMED: 071495884 (6) Dementia ICD Codes: F03.90 - Unspecified dementia without behavioral disturbance SNOMED: 60498654 Status: progressing Status Narrative Discussed with Dr. Bucio. Assessment/Plan stool studies >> negative supportive care at this time anemia work up >> iron deficiency >> venofer x 1 zofran prn monitor BP medications PO/IV hydration + electrolyte correction Imodium prn low residual diet, tolerating abx fu labs outpatient GI procedures The patient was seen and examined at bedside and all new and available data was reviewed in the patients chart. I agree with the above findings, impression and plan. (Patient seen earlier today. Signature stamp does not reflect patient encounter time.). - Simon Bucio MD Subjective Gastrointestinal/Abdominal: Reports: no symptoms Objective Last 24 Hour Vital Signs Date Time Temp Pulse Resp B/P (MAP) Pulse Ox O2 Delivery O2 Flow Rate FiO2 10/20/17 08:38 97.5 84 20 180/83 93 Room Air 10/20/17 08:00 109 131 129 10/20/17 07:54 91 16 Room Air 21 10/20/17 04:00 98.0 78 19 163/95 95 10/20/17 00:39 97.3 77 19 153/81 93 10/19/17 21:00 82 95 115 10/19/17 20:00 94 Room Air 10/19/17 20:00 97.0 83 20 115/51 91 10/19/17 19:00 81 18 Room Air 21 10/19/17 16:00 97.2 72 19 167/75 93 Room Air 10/19/17 16:00 66 10/19/17 12:00 69 10/19/17 12:00 97.8 75 19 158/73 93 Room Air Intake and Output 10/19/17 10/20/17 19:00 07:00 Intake Total 472 ml 1190 ml Balance 472 ml 1190 ml Intake Oral 472 ml 240 ml IV Total 950 ml # Voids 2 2 Laboratory Tests Test 10/20/17 04:45 White Blood Count 4.9 K/UL (4.8-10.8) Red Blood Count 3.62 M/UL (4.20-5.40) L Hemoglobin 10.9 G/DL (12.0-16.0) L Hematocrit 32.6 % (37.0-47.0) L Mean Corpuscular Volume 90 FL (80-99) Mean Corpuscular Hemoglobin 30.2 PG (27.0-31.0) Mean Corpuscular Hemoglobin Concent 33.6 G/DL (32.0-36.0) Red Cell Distribution Width 13.3 % (11.6-14.8) Platelet Count 203 K/UL (150-450) Mean Platelet Volume 6.2 FL (6.5-10.1) L Neutrophils (%) (Auto) 53.2 % (45.0-75.0) Lymphocytes (%) (Auto) 29.6 % (20.0-45.0) Monocytes (%) (Auto) 14.7 % (1.0-10.0) H Eosinophils (%) (Auto) 1.7 % (0.0-3.0) Basophils (%) (Auto) 0.9 % (0.0-2.0) Sodium Level 133 MMOL/L (136-145) L Potassium Level 3.7 MMOL/L (3.5-5.1) Chloride Level 101 MMOL/L (98-107) Carbon Dioxide Level 24 MMOL/L (21-32) Anion Gap 8 mmol/L (5-15) Blood Urea Nitrogen 11 mg/dL (7-18) Creatinine 0.9 MG/DL (0.55-1.30) Estimat Glomerular Filtration Rate mL/min (>60) Glucose Level 97 MG/DL (74-106) Hemoglobin A1c 6.5 % (4.3-6.0) H Uric Acid 4.4 MG/DL (2.6-7.2) Calcium Level 7.2 MG/DL (8.5-10.1) L Phosphorus Level 2.1 MG/DL (2.5-4.9) L Magnesium Level 2.1 MG/DL (1.8-2.4) Iron Level 38 ug/dL (50-175) L Total Iron Binding Capacity 278 ug/dL (250-450) Percent Iron Saturation 14 % (15-50) L Unsaturated Iron Binding 240 ug/dL (112-346) Ferritin 87 NG/ML (8-388) Total Bilirubin 0.4 MG/DL (0.2-1.0) Aspartate Amino Transf (AST/SGOT) 14 U/L (15-37) L Alanine Aminotransferase (ALT/SGPT) 15 U/L (12-78) Alkaline Phosphatase 40 U/L (46-116) L Troponin I 0.010 ng/mL (0.000-0.056) C-Reactive Protein, Quantitative 0.6 mg/dL (0.00-0.90) Pro-B-Type Natriuretic Peptide 381 pg/mL (0-125) H Total Protein 5.5 G/DL (6.4-8.2) L Albumin 2.6 G/DL (3.4-5.0) L Globulin 2.9 g/dL Albumin/Globulin Ratio 0.9 (1.0-2.7) L Vitamin B12 Level 1235 PG/ML (193-986) H Folate 11.8 NG/ML (8.6-58.9) Random Vancomycin Level < 2.0 ug/mL Microbiology Date/Time Source Procedure Growth Status 10/19/17 15:00 Nasal Nares Influenza Types A,B Antigen (BRIAN) - Final Complete Height (Feet): 5 Height (Inches): 0.00 Weight (Pounds): 170 General Appearance: WD/WN, no apparent distress, alert, overweight, other - OOB Cardiovascular: normal rate Respiratory/Chest: normal breath sounds, no respiratory distress Abdominal Exam: normal bowel sounds, non tender, soft Extremities: normal range of motion, non-tender Kylah Arango N.Olman Oct 20, 2017 10:26 YOCASTA BUCIO Oct 21, 2017 10:02
--- NOTE | 2017-10-20 10:26 | Diagnostic Imaging Report ---
Indication: Pain Technique: 3 views of the right shoulder Comparison: none Findings: There is a fracture deformity of the right humerus, with the humeral shaft is displaced from the humeral neck by about one bone width. There is extensive bridging new bone, and it is uncertain the extent to which bony union has occurred, although suspect that there is ankylosis across the fracture line. Bones are osteoporotic Impression:Fracture deformity of the right humeral neck, with extensive bridging new bone. Degree of bony union uncertain although suspect that the fracture is mostly united. Consider cross-sectional imaging if this is considered clinically relevant
[2017-10-20] MEDS ORDERED: Loperamide 2mg cap ORAL PRN (10:30)
[2017-10-20] MEDS ORDERED: Iron Sucrose 100 MG in NS 55 ML IV ONE ×2 (12:00→22:00)
--- NOTE | 2017-10-20 14:46 | Nephrology Progress Note ---
Assessment/Plan Problem List: (1) Hypertension (2) Anemia (3) Hyponatremia (4) Dehydration (5) Electrolyte imbalance Assessment status: Low na, doubt depletional as Renal parameters WNL- today Na 133 HypoTension on arrival likely Volume depletion, leading to syncope , now HTN ! Vomiting and Diarrhea Low Mag and Low ca Anemia- low Iron A1c elevated: DM Plan Sugg: Saline IV adjust bp meds check Kusum U os Uric Acid monitor lytes Vit D Mag and Phos supplement as needed per orders Subjective ROS Limited/Unobtainable: No Constitutional: Reports: malaise Objective Objective Last 24 Hour Vital Signs Date Time Temp Pulse Resp B/P (MAP) Pulse Ox O2 Delivery O2 Flow Rate FiO2 10/20/17 12:00 97.1 73 20 187/83 96 Room Air 10/20/17 08:38 97.5 84 20 180/83 93 Room Air 10/20/17 08:00 109 131 129 10/20/17 07:54 91 16 Room Air 21 10/20/17 04:00 98.0 78 19 163/95 95 10/20/17 00:39 97.3 77 19 153/81 93 10/19/17 21:00 82 95 115 10/19/17 20:00 94 Room Air 10/19/17 20:00 97.0 83 20 115/51 91 10/19/17 19:00 81 18 Room Air 21 10/19/17 16:00 97.2 72 19 167/75 93 Room Air 10/19/17 16:00 66 Intake and Output 10/19/17 10/20/17 19:00 07:00 Intake Total 472 ml 1190 ml Balance 472 ml 1190 ml Intake Oral 472 ml 240 ml IV Total 950 ml # Voids 2 2 Laboratory Tests 10/20/17 04:45: White Blood Count 4.9, Red Blood Count 3.62L, Hemoglobin 10.9L, Hematocrit 32.6L , Mean Corpuscular Volume 90, Mean Corpuscular Hemoglobin 30.2, Mean Corpuscular Hemoglobin Concent 33.6, Red Cell Distribution Width 13.3, Platelet Count 203, Mean Platelet Volume 6.2L, Neutrophils (%) (Auto) 53.2, Lymphocytes ( %) (Auto) 29.6, Monocytes (%) (Auto) 14.7H, Eosinophils (%) (Auto) 1.7, Basophils (%) (Auto) 0.9, Sodium Level 133L, Potassium Level 3.7, Chloride Level 101, Carbon Dioxide Level 24, Anion Gap 8, Blood Urea Nitrogen 11, Creatinine 0.9, Estimat Glomerular Filtration Rate , Glucose Level 97, Hemoglobin A1c 6.5H, Uric Acid 4.4, Calcium Level 7.2L, Phosphorus Level 2.1L, Magnesium Level 2.1, Iron Level 38L, Total Iron Binding Capacity 278, Percent Iron Saturation 14L, Unsaturated Iron Binding 240, Ferritin 87, Total Bilirubin 0.4, Aspartate Amino Transf (AST/SGOT) 14L, Alanine Aminotransferase (ALT/SGPT) 15, Alkaline Phosphatase 40L, Troponin I 0.010, C-Reactive Protein, Quantitative 0.6, Pro-B-Type Natriuretic Peptide 381H, Total Protein 5.5L, Albumin 2.6L, Globulin 2.9, Albumin/Globulin Ratio 0.9L, Vitamin B12 Level 1235H , Folate 11.8, Random Vancomycin Level < 2.0 Height (Feet): 5 Height (Inches): 0.00 Weight (Pounds): 170 General Appearance: no apparent distress Objective no change JAC ZARAGOZA Oct 20, 2017 14:46
[2017-10-20] MEDS ORDERED: Metoprolol Tartrate 12.5mg TAB ORAL ONE (15:35)
[2017-10-20] MEDS ORDERED: Potassium Phosphate 20 MM in NS 275 ML IV ONE (16:30)
[2017-10-20] MEDS ORDERED: Miralax 17gm pkt ORAL PRN (17:00)
--- NOTE | 2017-10-20 18:00 | Infectious Diseases Prog Note ---
Assessment/Plan Assessment/Plan Assessment: Diarrhea/V, now resolved- likely viral gastroenteritis- ?2ry to recent Flu -CDiff neg -stool cx enteric quan so far -Flu neg Afebrile, no leukocytosis -u/a neg REcent dx of Influenza at [facility]- unclear if traeted with Tamiflu (family said theraflu but it may have been tamiflu) ?Syncopal episode L knee pain- r/o fracture -xray knee no fracture R shoulder fracture (several months ago), -xra HTN, cellulitis, HLD, hypothyroidism, morbid obesity, pulmonary fibrosis, OA and osteoporosis Plan: -D/c Ceftriaxone and Flagyl #2 and Tamiflu #2 and monitor off abx -1/3 SP IV Vanco and CEfepime #2 -f/u Bcx, stool cx -Monitor CBC/BMP, temperatures -low threshold for CT abd/p if bloody stool, abd pain Thank you for this consultation. Will continue to follow along with you. Discussed with RN and family at bedside. Subjective Allergies: Coded Allergies: No Known Allergies (Unverified , 03/17/15) Subjective afebirle. no leukocytosis v/d resolved. Objective Vital Signs Last 24 Hour Vital Signs Date Time Temp Pulse Resp B/P (MAP) Pulse Ox O2 Delivery O2 Flow Rate FiO2 10/20/17 16:52 97.1 10/20/17 15:48 85 160/74 10/20/17 15:36 97.6 85 20 160/74 97 Room Air 10/20/17 12:00 97.1 73 20 187/83 96 Room Air 10/20/17 08:38 97.5 84 20 180/83 93 Room Air 10/20/17 08:00 109 131 129 10/20/17 07:54 91 16 Room Air 21 10/20/17 04:00 98.0 78 19 163/95 95 10/20/17 00:39 97.3 77 19 153/81 93 10/19/17 21:00 82 95 115 10/19/17 20:00 94 Room Air 10/19/17 20:00 97.0 83 20 115/51 91 10/19/17 19:00 81 18 Room Air 21 Height (Feet): 5 Height (Inches): 0.00 Weight (Pounds): 170 Objective GENERAL: Shows to be obese female, in no respiratory distress. NECK: Supple. No jugular venous distention is noted. LUNGS: Clear to auscultation and percussion. CARDIAC: S1 is normal. S2 is normal. Regular rate and rhythm. ABDOMEN: Soft and nontender. Positive bowel sounds. EXTREMITIES: There is no clubbing, cyanosis, or edema. L knee swelling and TTP NEUROLOGICAL: She is awake, alert, and responsive. Seems to move all four extremities. Microbiology Date/Time Source Procedure Growth Status 10/19/17 15:00 Nasal Nares Influenza Types A,B Antigen (BRIAN) - Final Complete 10/18/17 15:35 Stool Clostridium difficile Toxin Assay - Final Complete 10/18/17 15:35 Anus Stool Culture - Preliminary NO SALMONELLA,SHIGELLA,OR CAMPYLOBACT... Resulted 10/18/17 15:35 Anus WBC Smear - Final Complete Laboratory Tests Test 10/20/17 04:45 White Blood Count 4.9 K/UL (4.8-10.8) Red Blood Count 3.62 M/UL (4.20-5.40) L Hemoglobin 10.9 G/DL (12.0-16.0) L Hematocrit 32.6 % (37.0-47.0) L Mean Corpuscular Volume 90 FL (80-99) Mean Corpuscular Hemoglobin 30.2 PG (27.0-31.0) Mean Corpuscular Hemoglobin Concent 33.6 G/DL (32.0-36.0) Red Cell Distribution Width 13.3 % (11.6-14.8) Platelet Count 203 K/UL (150-450) Mean Platelet Volume 6.2 FL (6.5-10.1) L Neutrophils (%) (Auto) 53.2 % (45.0-75.0) Lymphocytes (%) (Auto) 29.6 % (20.0-45.0) Monocytes (%) (Auto) 14.7 % (1.0-10.0) H Eosinophils (%) (Auto) 1.7 % (0.0-3.0) Basophils (%) (Auto) 0.9 % (0.0-2.0) Sodium Level 133 MMOL/L (136-145) L Potassium Level 3.7 MMOL/L (3.5-5.1) Chloride Level 101 MMOL/L (98-107) Carbon Dioxide Level 24 MMOL/L (21-32) Anion Gap 8 mmol/L (5-15) Blood Urea Nitrogen 11 mg/dL (7-18) Creatinine 0.9 MG/DL (0.55-1.30) Estimat Glomerular Filtration Rate mL/min (>60) Glucose Level 97 MG/DL (74-106) Hemoglobin A1c 6.5 % (4.3-6.0) H Uric Acid 4.4 MG/DL (2.6-7.2) Calcium Level 7.2 MG/DL (8.5-10.1) L Phosphorus Level 2.1 MG/DL (2.5-4.9) L Magnesium Level 2.1 MG/DL (1.8-2.4) Iron Level 38 ug/dL (50-175) L Total Iron Binding Capacity 278 ug/dL (250-450) Percent Iron Saturation 14 % (15-50) L Unsaturated Iron Binding 240 ug/dL (112-346) Ferritin 87 NG/ML (8-388) Total Bilirubin 0.4 MG/DL (0.2-1.0) Aspartate Amino Transf (AST/SGOT) 14 U/L (15-37) L Alanine Aminotransferase (ALT/SGPT) 15 U/L (12-78) Alkaline Phosphatase 40 U/L (46-116) L Troponin I 0.010 ng/mL (0.000-0.056) C-Reactive Protein, Quantitative 0.6 mg/dL (0.00-0.90) Pro-B-Type Natriuretic Peptide 381 pg/mL (0-125) H Total Protein 5.5 G/DL (6.4-8.2) L Albumin 2.6 G/DL (3.4-5.0) L Globulin 2.9 g/dL Albumin/Globulin Ratio 0.9 (1.0-2.7) L Vitamin B12 Level 1235 PG/ML (193-986) H Folate 11.8 NG/ML (8.6-58.9) Random Vancomycin Level < 2.0 ug/mL Current Medications Medications (Trade) Dose Ordered Sig/Jone Route PRN Reason Start Time Stop Time Status Last Admin Dose Admin Acetaminophen (Tylenol) 650 mg Q4H PRN ORAL fever 10/20/17 01:00 11/17/17 16:59 10/20/17 15:52 Albuterol/ Ipratropium (Albuterol/ Ipratropium) 3 ml Q4H PRN HHN Shortness of Breath 10/20/17 01:00 10/23/17 16:59 Ceftriaxone Sodium 1 gm/ Dextrose 55 ml @ 110 mls/hr Q24H IVPB 10/20/17 06:00 10/27/17 05:59 10/20/17 06:11 Ergocalciferol (Drisdol) 50,000 intlu QWEEK ORAL 10/26/17 14:00 11/18/17 13:59 Heparin Sodium (Porcine) (Heparin 5000 units/ml) 5,000 units EVERY 12 HOURS SUBQ 10/20/17 09:00 11/17/17 20:59 10/20/17 08:47 Iron Sucrose 100 mg/Sodium Chloride 60 ml @ 120 mls/hr ONCE ONCE IV 10/20/17 22:00 10/20/17 22:29 Levothyroxine Sodium (Synthroid) 25 mcg DAILY@0630 ORAL 10/20/17 06:30 11/18/17 06:29 10/20/17 06:09 Loperamide HCl (Imodium) 2 mg Q4H PRN ORAL Diarrhea 10/20/17 10:30 11/19/17 10:29 Metoprolol Tartrate (Lopressor) 12.5 mg Q12HR ORAL 10/20/17 21:00 11/19/17 20:59 Metronidazole (Flagyl) 500 mg Q8HR ORAL 10/20/17 06:00 10/26/17 11:59 10/20/17 14:11 Morphine Sulfate (Morphine Sulfate) 2 mg Q4H PRN IVP Moderate Pain (Pain Scale 4-6) 10/20/17 01:00 10/25/17 16:59 Ondansetron HCl (Zofran) 4 mg Q6H PRN IVP Nausea & Vomiting 10/19/17 23:00 11/17/17 16:59 Oseltamivir Phosphate (Tamiflu) 30 mg DAILY ORAL 10/20/17 09:00 10/24/17 12:59 10/20/17 08:46 Polyethylene Glycol (Miralax) 17 gm DAILYPRN PRN ORAL Constipation 10/20/17 17:00 11/17/17 16:59 Potassium Phosphate 20 mm/ Sodium Chloride 281.6667 ml @ 46.944 m... ONCE ONCE IV 10/20/17 16:30 10/20/17 22:29 10/20/17 16:31 Sodium Chloride 1,000 ml @ 50 mls/hr Q20H IV 10/20/17 16:00 11/19/17 15:59 10/20/17 15:40 Temazepam (Restoril) 15 mg HSPRN PRN ORAL Insomnia 10/20/17 17:00 10/25/17 16:59 Neli Shabazz M.D. Oct 20, 2017 18:00
--- NOTE | 2017-10-20 18:43 | Pulmonology Progress Note ---
Assessment/Plan Problems: (1) Syncope (2) Hyponatremia (3) Gastroenteritis (4) Anemia (5) Hypothyroid (6) Hypertension (7) Dementia (8) Deafness Assessment/Plan Na better continue fluids check electrolytes pt/ot advance diet bp better now, at the high site dvt prophylaxis dc planning Subjective ROS Limited/Unobtainable: No Constitutional: Reports: no symptoms HEENT: Repors: no symptoms Respiratory: Reports: no symptoms Allergies: Coded Allergies: No Known Allergies (Unverified , 03/17/15) Objective Last 24 Hour Vital Signs Date Time Temp Pulse Resp B/P (MAP) Pulse Ox O2 Delivery O2 Flow Rate FiO2 10/20/17 16:52 97.1 10/20/17 15:48 85 160/74 10/20/17 15:36 97.6 85 20 160/74 97 Room Air 10/20/17 12:00 97.1 73 20 187/83 96 Room Air 10/20/17 08:38 97.5 84 20 180/83 93 Room Air 10/20/17 08:00 109 131 129 10/20/17 07:54 91 16 Room Air 21 10/20/17 04:00 98.0 78 19 163/95 95 10/20/17 00:39 97.3 77 19 153/81 93 10/19/17 21:00 82 95 115 10/19/17 20:00 94 Room Air 10/19/17 20:00 97.0 83 20 115/51 91 10/19/17 19:00 81 18 Room Air 21 Intake and Output 10/19/17 10/20/17 19:00 07:00 Intake Total 472 ml 1190 ml Balance 472 ml 1190 ml Intake Oral 472 ml 240 ml IV Total 950 ml # Voids 2 2 General Appearance: WD/WN HEENT: normocephalic Respiratory/Chest: chest wall non-tender, lungs clear Breasts: no masses Cardiovascular: normal peripheral pulses Abdomen: normal bowel sounds, soft, non tender Extremities: no cyanosis Skin: no lesions Neurologic/Psychiatric: director II-XII grossly normal Microbiology Date/Time Source Procedure Growth Status 10/19/17 15:00 Nasal Nares Influenza Types A,B Antigen (BRIAN) - Final Complete 10/18/17 15:35 Stool Clostridium difficile Toxin Assay - Final Complete 10/18/17 15:35 Anus Stool Culture - Preliminary NO SALMONELLA,SHIGELLA,OR CAMPYLOBACT... Resulted 10/18/17 15:35 Anus WBC Smear - Final Complete Laboratory Tests 10/20/17 04:45: White Blood Count 4.9, Red Blood Count 3.62L, Hemoglobin 10.9L, Hematocrit 32.6L , Mean Corpuscular Volume 90, Mean Corpuscular Hemoglobin 30.2, Mean Corpuscular Hemoglobin Concent 33.6, Red Cell Distribution Width 13.3, Platelet Count 203, Mean Platelet Volume 6.2L, Neutrophils (%) (Auto) 53.2, Lymphocytes ( %) (Auto) 29.6, Monocytes (%) (Auto) 14.7H, Eosinophils (%) (Auto) 1.7, Basophils (%) (Auto) 0.9, Sodium Level 133L, Potassium Level 3.7, Chloride Level 101, Carbon Dioxide Level 24, Anion Gap 8, Blood Urea Nitrogen 11, Creatinine 0.9, Estimat Glomerular Filtration Rate , Glucose Level 97, Hemoglobin A1c 6.5H, Uric Acid 4.4, Calcium Level 7.2L, Phosphorus Level 2.1L, Magnesium Level 2.1, Iron Level 38L, Total Iron Binding Capacity 278, Percent Iron Saturation 14L, Unsaturated Iron Binding 240, Ferritin 87, Total Bilirubin 0.4, Aspartate Amino Transf (AST/SGOT) 14L, Alanine Aminotransferase (ALT/SGPT) 15, Alkaline Phosphatase 40L, Troponin I 0.010, C-Reactive Protein, Quantitative 0.6, Pro-B-Type Natriuretic Peptide 381H, Total Protein 5.5L, Albumin 2.6L, Globulin 2.9, Albumin/Globulin Ratio 0.9L, Vitamin B12 Level 1235H , Folate 11.8, Random Vancomycin Level < 2.0 Current Medications Medications (Trade) Dose Ordered Sig/Jone Route PRN Reason Start Time Stop Time Status Last Admin Dose Admin Acetaminophen (Tylenol) 650 mg Q4H PRN ORAL fever 10/20/17 01:00 11/17/17 16:59 10/20/17 15:52 Albuterol/ Ipratropium (Albuterol/ Ipratropium) 3 ml Q4H PRN HHN Shortness of Breath 10/20/17 01:00 10/23/17 16:59 Ergocalciferol (Drisdol) 50,000 intlu QWEEK ORAL 10/26/17 14:00 11/18/17 13:59 Heparin Sodium (Porcine) (Heparin 5000 units/ml) 5,000 units EVERY 12 HOURS SUBQ 10/20/17 09:00 11/17/17 20:59 10/20/17 08:47 Iron Sucrose 100 mg/Sodium Chloride 60 ml @ 120 mls/hr ONCE ONCE IV 10/20/17 22:00 10/20/17 22:29 Levothyroxine Sodium (Synthroid) 25 mcg DAILY@0630 ORAL 10/20/17 06:30 11/18/17 06:29 10/20/17 06:09 Loperamide HCl (Imodium) 2 mg Q4H PRN ORAL Diarrhea 10/20/17 10:30 11/19/17 10:29 Metoprolol Tartrate (Lopressor) 12.5 mg Q12HR ORAL 10/20/17 21:00 11/19/17 20:59 Morphine Sulfate (Morphine Sulfate) 2 mg Q4H PRN IVP Moderate Pain (Pain Scale 4-6) 10/20/17 01:00 10/25/17 16:59 Ondansetron HCl (Zofran) 4 mg Q6H PRN IVP Nausea & Vomiting 10/19/17 23:00 11/17/17 16:59 Polyethylene Glycol (Miralax) 17 gm DAILYPRN PRN ORAL Constipation 10/20/17 17:00 11/17/17 16:59 Potassium Phosphate 20 mm/ Sodium Chloride 281.6667 ml @ 46.944 m... ONCE ONCE IV 10/20/17 16:30 10/20/17 22:29 10/20/17 16:31 Sodium Chloride 1,000 ml @ 50 mls/hr Q20H IV 10/20/17 16:00 11/19/17 15:59 10/20/17 15:40 Temazepam (Restoril) 15 mg HSPRN PRN ORAL Insomnia 10/20/17 17:00 10/25/17 16:59 RAMIRO CASAREZ Oct 20, 2017 18:43
[2017-10-20] MEDS: Metoprolol Tartrate 12.5mg TAB ORAL SCH (20:56)
[2017-10-21] VITALS: BP 160/78
[2017-10-21 04:00] VITALS: BP 158/82
[2017-10-21] MEDS: Levothyroxine 25mcg tab ORAL SCH (06:28)
[2017-10-21 07:23] LABS: BASOPHILS % (AUTO) 0.4 % (0.0-2.0); EOSINOPHILS % (AUTO) 2.7 % (0.0-3.0); HEMATOCRIT 34.5 % (37.0-47.0); HEMOGLOBIN 11.5 G/DL (12.0-16.0); LYMPHOCYTES % (AUTO) 31.1 % (20.0-45.0); MEAN CORPUSCULAR VOLUME 90 FL (80-99); MONOCYTES % (AUTO) 15.9 % (1.0-10.0); NEUTROPHILS % (AUTO) 49.9 % (45.0-75.0); PLATELET COUNT 229 K/UL (150-450); RED BLOOD COUNT 3.84 M/UL (4.20-5.40); WHITE BLOOD COUNT 5.1 K/UL (4.8-10.8)
--- NOTE | 2017-10-21 07:40 | Pulmonology Progress Note ---
Assessment/Plan Assessment/Plan ASSESSMENT Syncope Hypotension ( 2 volume depletion due to dehydration caused by diarrhea and vomiting) Diarrhea-resolved probably viral gastroenteritis hypo Na-improved Anemia Dementia hypothyroidism L knee pain DM, new onset PLAN OF CARE [facility] floor BP improved with IVF, started on antiHTN syncope was likely due to volume depletion orthostatic BP + on 10/18/17 and better on 10/19 ( with IVF) cardio follows troponin x 2 negative, tele SR, no evidence of arrhythmia transferred to [place] declined ECHO GI follows Stool studies negative ( cx, C dif and WBC smear) Imodium prn low residue diet likely viral gastroenteritis diarrhea with n/v/ resolved, still weak Empiric abx ID follows and Tamiflu empirically, outpt GI procedures as per GI monitor lytes and replace as needed, Na better -132 , hypo Na w/u noted closely monitor Na as outpt and further w/up as outpt if hypo Na persist, unlikely depletional since renal parameters stable DVT prophylaxis TSH WNL, continue current dose of thyroid replacement X ray L knee no acute fracture , continue pain management PT/OT anemia w/up c/w anemia of chronic disease, monitor counts, stable ByL9h-9.5 Patient had diabetes, not aware, change diet to diabetic patient reluctant to start antiglycemic in the hospital, will refer patient to PMD for diabetic management fasting BS-120-140 range dc today case discussed and evaluated by supervising physician Subjective Allergies: Coded Allergies: No Known Allergies (Unverified , 03/17/15) Subjective feeling better no chest pain, no sob, no n/v/ BP stable Objective Last 24 Hour Vital Signs Date Time Temp Pulse Resp B/P (MAP) Pulse Ox O2 Delivery O2 Flow Rate FiO2 10/21/17 04:00 158/82 10/21/17 03:45 87 18 Room Air 21 10/21/17 00:00 77 18 160/78 96 Room Air 10/20/17 22:10 95 10/20/17 22:05 92 10/20/17 22:00 83 10/20/17 22:00 160/80 10/20/17 20:56 73 180/79 10/20/17 20:00 97.9 83 19 180/79 97 Room Air 10/20/17 16:52 97.1 10/20/17 16:30 73 20 200/89 10/20/17 15:48 85 160/74 10/20/17 15:36 97.6 85 20 160/74 97 Room Air 10/20/17 12:00 97.1 73 20 187/83 96 Room Air 10/20/17 08:38 97.5 84 20 180/83 93 Room Air 10/20/17 08:00 109 131 129 10/20/17 07:54 91 16 Room Air 21 Intake and Output 10/20/17 10/21/17 19:00 07:00 Intake Total 1420 ml 950.832 ml Balance 1420 ml 950.832 ml Intake Oral 660 ml 360 ml IV Total 760 ml 590.832 ml # Voids 4 3 # Bowel Movements 2 General Appearance: no acute distress HEENT: normocephalic, atraumatic, anicteric Respiratory/Chest: lungs clear - with moderate air exchange , no respiratory distress, no accessory muscle use Cardiovascular: normal peripheral pulses, normal rate, no JVD Abdomen: soft, non tender - obese Extremities: pedal pulses normal Neurologic/Psychiatric: abnormal gait, alert, responsive Musculoskeletal: atrophy - BLE Microbiology Date/Time Source Procedure Growth Status 10/19/17 08:30 Blood Blood Culture - Preliminary NO GROWTH AFTER 24 HOURS Resulted 10/19/17 08:15 Blood Blood Culture - Preliminary NO GROWTH AFTER 24 HOURS Resulted 10/19/17 15:00 Nasal Nares Influenza Types A,B Antigen (BRIAN) - Final Complete 10/18/17 15:35 Stool Clostridium difficile Toxin Assay - Final Complete 10/18/17 15:35 Anus Stool Culture - Preliminary NO SALMONELLA,SHIGELLA,OR CAMPYLOBACT... Resulted 10/18/17 15:35 Anus WBC Smear - Final Complete Laboratory Tests 10/21/17 05:45: White Blood Count 5.1, Red Blood Count 3.84L, Hemoglobin 11.5L, Hematocrit 34.5L , Mean Corpuscular Volume 90, Mean Corpuscular Hemoglobin 29.9, Mean Corpuscular Hemoglobin Concent 33.2, Red Cell Distribution Width 13.0, Platelet Count 229, Mean Platelet Volume 6.2L, Neutrophils (%) (Auto) 49.9, Lymphocytes ( %) (Auto) 31.1, Monocytes (%) (Auto) 15.9H, Eosinophils (%) (Auto) 2.7, Basophils (%) (Auto) 0.4, Sodium Level [Pending], Potassium Level [Pending], Chloride Level [Pending], Carbon Dioxide Level [Pending], Blood Urea Nitrogen [ Pending], Creatinine [Pending], Estimat Glomerular Filtration Rate [Pending], Glucose Level [Pending], Uric Acid [Pending], Calcium Level [Pending], Phosphorus Level [Pending], Magnesium Level [Pending], Total Bilirubin [Pending] , Aspartate Amino Transf (AST/SGOT) [Pending], Alanine Aminotransferase (ALT/ SGPT) [Pending], Alkaline Phosphatase [Pending], C-Reactive Protein, Quantitative [Pending], Total Protein [Pending], Albumin [Pending], Globulin [ Pending] Current Medications Medications (Trade) Dose Ordered Sig/Jone Route PRN Reason Start Time Stop Time Status Last Admin Dose Admin Acetaminophen (Tylenol) 650 mg Q4H PRN ORAL fever 10/21/17 01:00 11/20/17 00:59 10/21/17 00:11 Albuterol/ Ipratropium (Albuterol/ Ipratropium) 3 ml Q4H PRN HHN Shortness of Breath 10/20/17 01:00 10/23/17 16:59 Ergocalciferol (Drisdol) 50,000 intlu QWEEK ORAL 10/26/17 14:00 11/18/17 13:59 Heparin Sodium (Porcine) (Heparin 5000 units/ml) 5,000 units EVERY 12 HOURS SUBQ 10/20/17 09:00 11/17/17 20:59 10/20/17 20:57 Levothyroxine Sodium (Synthroid) 25 mcg DAILY@0630 ORAL 10/20/17 06:30 11/18/17 06:29 10/21/17 06:28 Loperamide HCl (Imodium) 2 mg Q4H PRN ORAL Diarrhea 10/20/17 10:30 11/19/17 10:29 Metoprolol Tartrate (Lopressor) 12.5 mg Q12HR ORAL 10/20/17 21:00 11/19/17 20:59 10/20/17 20:56 Morphine Sulfate (Morphine Sulfate) 2 mg Q4H PRN IVP Moderate Pain (Pain Scale 4-6) 10/20/17 01:00 10/25/17 16:59 Nebivolol (Bystolic) 2.5 mg Q12HR ORAL 10/20/17 21:00 11/19/17 20:59 10/20/17 20:56 Ondansetron HCl (Zofran) 4 mg Q6H PRN IVP Nausea & Vomiting 10/19/17 23:00 11/17/17 16:59 10/20/17 21:56 Polyethylene Glycol (Miralax) 17 gm DAILYPRN PRN ORAL Constipation 10/20/17 17:00 11/17/17 16:59 Sodium Chloride 1,000 ml @ 50 mls/hr Q20H IV 10/20/17 16:00 11/19/17 15:59 10/20/17 15:40 Temazepam (Restoril) 15 mg HSPRN PRN ORAL Insomnia 10/20/17 17:00 10/25/17 16:59 [facility] HospitalShawna Thompson NP Oct 21, 2017 07:40
[2017-10-21 08:00] VITALS: BP 184/104
[2017-10-21 08:03] LABS: ALANINE AMINOTRANSFERASE 18 U/L (12-78); ALBUMIN 2.7 G/DL (3.4-5.0); ALBUMIN/GLOBULIN RATIO 0.9 (1.0-2.7); ALKALINE PHOSPHATASE 43 U/L (46-116); ANION GAP 8 mmol/L (5-15); ASPARTATE AMINO TRANSFERASE 15 U/L (15-37); BILIRUBIN,TOTAL 0.4 MG/DL (0.2-1.0); BLOOD UREA NITROGEN 7 mg/dL (7-18); CALCIUM 7.1 MG/DL (8.5-10.1); CARBON DIOXIDE 25 MMOL/L (21-32); CHLORIDE 99 MMOL/L (98-107); CREATININE 0.8 MG/DL (0.55-1.30); PHOSPHORUS 2.5 MG/DL (2.5-4.9); POTASSIUM 3.7 MMOL/L (3.5-5.1); SODIUM 132 MMOL/L (136-145)
[2017-10-21] MEDS: Bystolic 2.5mg Tab ORAL SCH (08:43)
[2017-10-21] MEDS: Metoprolol Tartrate 12.5mg TAB ORAL SCH (08:44)
[2017-10-21] MEDS: Heparin 5000 units/ml inj SUBQ SCH (08:55)
[2017-10-21] MEDS ORDERED: ZOFRAN4 M3 ORAL (09:47)
--- NOTE | 2017-10-21 10:56 | GI Progress Note ---
Assessment/Plan Problems: (1) Electrolyte imbalance ICD Codes: E87.8 - Other disorders of electrolyte and fluid balance, not elsewhere classified SNOMED: 030887910 (2) Dehydration ICD Codes: E86.0 - Dehydration SNOMED: 24366386 (3) Hyponatremia ICD Codes: E87.1 - Hypo-osmolality and hyponatremia SNOMED: 72478718 (4) Gastroenteritis ICD Codes: K52.9 - Noninfective gastroenteritis and colitis, unspecified SNOMED: 24743228 (5) Anemia ICD Codes: D64.9 - Anemia, unspecified SNOMED: 788560530 (6) Dementia ICD Codes: F03.90 - Unspecified dementia without behavioral disturbance SNOMED: 60460511 Status: stable Status Narrative Discussed with Dr. Bucio. Assessment/Plan stool studies >> negative supportive care at this time anemia work up >> iron deficiency >> venofer zofran prn monitor BP medications PO/IV hydration + electrolyte correction Imodium prn low residual diet, tolerating abx fu labs outpatient GI procedures The patient was seen and examined at bedside and all new and available data was reviewed in the patients chart. I agree with the above findings, impression and plan. (Patient seen earlier today. Signature stamp does not reflect patient encounter time.). - Simon Bucio MD Subjective Gastrointestinal/Abdominal: Reports: no symptoms Objective Last 24 Hour Vital Signs Date Time Temp Pulse Resp B/P (MAP) Pulse Ox O2 Delivery O2 Flow Rate FiO2 10/21/17 09:42 97.9 10/21/17 08:44 90 184/104 10/21/17 08:00 90 87 101 10/21/17 08:00 98.0 90 20 184/104 96 Room Air 10/21/17 04:00 158/82 10/21/17 03:45 87 18 Room Air 21 10/21/17 00:00 77 18 160/78 96 Room Air 10/20/17 22:10 95 10/20/17 22:05 92 10/20/17 22:00 83 10/20/17 22:00 160/80 10/20/17 20:56 73 180/79 10/20/17 20:00 97.9 83 19 180/79 97 Room Air 10/20/17 16:52 97.1 10/20/17 16:30 73 20 200/89 10/20/17 15:48 85 160/74 10/20/17 15:36 97.6 85 20 160/74 97 Room Air 10/20/17 12:00 97.1 73 20 187/83 96 Room Air Intake and Output 10/20/17 10/21/17 19:00 07:00 Intake Total 1420 ml 950.832 ml Balance 1420 ml 950.832 ml Intake Oral 660 ml 360 ml IV Total 760 ml 590.832 ml # Voids 4 3 # Bowel Movements 2 Laboratory Tests Test 10/21/17 05:45 White Blood Count 5.1 K/UL (4.8-10.8) Red Blood Count 3.84 M/UL (4.20-5.40) L Hemoglobin 11.5 G/DL (12.0-16.0) L Hematocrit 34.5 % (37.0-47.0) L Mean Corpuscular Volume 90 FL (80-99) Mean Corpuscular Hemoglobin 29.9 PG (27.0-31.0) Mean Corpuscular Hemoglobin Concent 33.2 G/DL (32.0-36.0) Red Cell Distribution Width 13.0 % (11.6-14.8) Platelet Count 229 K/UL (150-450) Mean Platelet Volume 6.2 FL (6.5-10.1) L Neutrophils (%) (Auto) 49.9 % (45.0-75.0) Lymphocytes (%) (Auto) 31.1 % (20.0-45.0) Monocytes (%) (Auto) 15.9 % (1.0-10.0) H Eosinophils (%) (Auto) 2.7 % (0.0-3.0) Basophils (%) (Auto) 0.4 % (0.0-2.0) Sodium Level 132 MMOL/L (136-145) L Potassium Level 3.7 MMOL/L (3.5-5.1) Chloride Level 99 MMOL/L (98-107) Carbon Dioxide Level 25 MMOL/L (21-32) Anion Gap 8 mmol/L (5-15) Blood Urea Nitrogen 7 mg/dL (7-18) Creatinine 0.8 MG/DL (0.55-1.30) Estimat Glomerular Filtration Rate mL/min (>60) Glucose Level 91 MG/DL (74-106) Uric Acid 3.8 MG/DL (2.6-7.2) Calcium Level 7.1 MG/DL (8.5-10.1) L Phosphorus Level 2.5 MG/DL (2.5-4.9) Magnesium Level 1.7 MG/DL (1.8-2.4) L Total Bilirubin 0.4 MG/DL (0.2-1.0) Aspartate Amino Transf (AST/SGOT) 15 U/L (15-37) Alanine Aminotransferase (ALT/SGPT) 18 U/L (12-78) Alkaline Phosphatase 43 U/L (46-116) L C-Reactive Protein, Quantitative 1.1 mg/dL (0.00-0.90) H Total Protein 5.7 G/DL (6.4-8.2) L Albumin 2.7 G/DL (3.4-5.0) L Globulin 3.0 g/dL Albumin/Globulin Ratio 0.9 (1.0-2.7) L Height (Feet): 5 Height (Inches): 0.00 Weight (Pounds): 170 General Appearance: WD/WN, no apparent distress, alert Cardiovascular: normal rate Respiratory/Chest: normal breath sounds, no respiratory distress Abdominal Exam: normal bowel sounds, non tender, soft Extremities: normal range of motion, non-tender Kylah Arango N.P. Oct 21, 2017 10:56 YOCASTA BUCIO Oct 25, 2017 11:34
--- NOTE | 2017-10-21 11:35 | Discharge Instructions ---
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 Joe ([facility]),Shawna CHÁVEZ Oct 21, 2017 11:35
--- NOTE | 2017-10-21 11:49 | Infectious Diseases Prog Note ---
Assessment/Plan Assessment/Plan Assessment: Diarrhea/V, now resolved- likely viral gastroenteritis- ?2ry to recent Flu -CDiff neg -stool cx enteric -Flu neg Afebrile, no leukocytosis -u/a negl Ucx 10-20K mixed gram positive growth (colonizers) REcent dx of Influenza at [facility]- unclear if traeted with Tamiflu (family said theraflu but it may have been tamiflu) ?Syncopal episode L knee pain- r/o fracture -xray knee no fracture R shoulder fracture (several months ago), -xra HTN, cellulitis, HLD, hypothyroidism, morbid obesity, pulmonary fibrosis, OA and osteoporosis Plan: -Continue to monitor off abx -10/20 SP Ceftriaxone, Flagyl, Tamiflu #2 -10/19 SP IV Vanco and CEfepime #2 -f/u Bcx -Monitor CBC/BMP, temperatures -low threshold for CT abd/p if bloody stool, abd pain -supportive treatment Thank you for this consultation. Will continue to follow along with you. Discussed with RN and family at bedside. Subjective Allergies: Coded Allergies: No Known Allergies (Unverified , 03/17/15) Subjective afebirle. no leukocytosis v/d resolved. Objective Vital Signs Last 24 Hour Vital Signs Date Time Temp Pulse Resp B/P (MAP) Pulse Ox O2 Delivery O2 Flow Rate FiO2 10/21/17 09:42 97.9 10/21/17 08:44 90 184/104 10/21/17 08:00 90 87 101 10/21/17 08:00 98.0 90 20 184/104 96 Room Air 10/21/17 04:00 158/82 10/21/17 03:45 87 18 Room Air 21 10/21/17 00:00 77 18 160/78 96 Room Air 10/20/17 22:10 95 10/20/17 22:05 92 10/20/17 22:00 83 10/20/17 22:00 160/80 10/20/17 20:56 73 180/79 10/20/17 20:00 97.9 83 19 180/79 97 Room Air 10/20/17 16:52 97.1 10/20/17 16:30 73 20 200/89 10/20/17 15:48 85 160/74 10/20/17 15:36 97.6 85 20 160/74 97 Room Air 10/20/17 12:00 97.1 73 20 187/83 96 Room Air Height (Feet): 5 Height (Inches): 0.00 Weight (Pounds): 170 Objective GENERAL: Shows to be obese female, in no respiratory distress. NECK: Supple. No jugular venous distention is noted. LUNGS: Clear to auscultation and percussion. CARDIAC: S1 is normal. S2 is normal. Regular rate and rhythm. ABDOMEN: Soft and nontender. Positive bowel sounds. EXTREMITIES: There is no clubbing, cyanosis, or edema. L knee swelling and TTP NEUROLOGICAL: She is awake, alert, and responsive. Seems to move all four extremities. Microbiology Date/Time Source Procedure Growth Status 10/19/17 08:30 Blood Blood Culture - Preliminary NO GROWTH AFTER 24 HOURS Resulted 10/19/17 08:15 Blood Blood Culture - Preliminary NO GROWTH AFTER 24 HOURS Resulted 10/19/17 15:00 Nasal Nares Influenza Types A,B Antigen (BRIAN) - Final Complete 10/18/17 15:35 Stool Clostridium difficile Toxin Assay - Final Complete 10/19/17 21:50 Indwelling Cath Urine Culture - Preliminary Mixed Gram Positive Organism Resulted 10/18/17 15:35 Anus Stool Culture - Final NO SALMONELLA,SHIGELLA,OR CAMPYLOBACT... Complete 10/18/17 15:35 Anus WBC Smear - Final Complete Laboratory Tests Test 10/21/17 05:45 White Blood Count 5.1 K/UL (4.8-10.8) Red Blood Count 3.84 M/UL (4.20-5.40) L Hemoglobin 11.5 G/DL (12.0-16.0) L Hematocrit 34.5 % (37.0-47.0) L Mean Corpuscular Volume 90 FL (80-99) Mean Corpuscular Hemoglobin 29.9 PG (27.0-31.0) Mean Corpuscular Hemoglobin Concent 33.2 G/DL (32.0-36.0) Red Cell Distribution Width 13.0 % (11.6-14.8) Platelet Count 229 K/UL (150-450) Mean Platelet Volume 6.2 FL (6.5-10.1) L Neutrophils (%) (Auto) 49.9 % (45.0-75.0) Lymphocytes (%) (Auto) 31.1 % (20.0-45.0) Monocytes (%) (Auto) 15.9 % (1.0-10.0) H Eosinophils (%) (Auto) 2.7 % (0.0-3.0) Basophils (%) (Auto) 0.4 % (0.0-2.0) Sodium Level 132 MMOL/L (136-145) L Potassium Level 3.7 MMOL/L (3.5-5.1) Chloride Level 99 MMOL/L (98-107) Carbon Dioxide Level 25 MMOL/L (21-32) Anion Gap 8 mmol/L (5-15) Blood Urea Nitrogen 7 mg/dL (7-18) Creatinine 0.8 MG/DL (0.55-1.30) Estimat Glomerular Filtration Rate mL/min (>60) Glucose Level 91 MG/DL (74-106) Uric Acid 3.8 MG/DL (2.6-7.2) Calcium Level 7.1 MG/DL (8.5-10.1) L Phosphorus Level 2.5 MG/DL (2.5-4.9) Magnesium Level 1.7 MG/DL (1.8-2.4) L Total Bilirubin 0.4 MG/DL (0.2-1.0) Aspartate Amino Transf (AST/SGOT) 15 U/L (15-37) Alanine Aminotransferase (ALT/SGPT) 18 U/L (12-78) Alkaline Phosphatase 43 U/L (46-116) L C-Reactive Protein, Quantitative 1.1 mg/dL (0.00-0.90) H Total Protein 5.7 G/DL (6.4-8.2) L Albumin 2.7 G/DL (3.4-5.0) L Globulin 3.0 g/dL Albumin/Globulin Ratio 0.9 (1.0-2.7) L Current Medications Medications (Trade) Dose Ordered Sig/Jone Route PRN Reason Start Time Stop Time Status Last Admin Dose Admin Acetaminophen (Tylenol) 650 mg Q4H PRN ORAL fever 10/21/17 01:00 11/20/17 00:59 10/21/17 08:43 Albuterol/ Ipratropium (Albuterol/ Ipratropium) 3 ml Q4H PRN HHN Shortness of Breath 10/20/17 01:00 10/23/17 16:59 Ergocalciferol (Drisdol) 50,000 intlu QWEEK ORAL 10/26/17 14:00 11/18/17 13:59 Heparin Sodium (Porcine) (Heparin 5000 units/ml) 5,000 units EVERY 12 HOURS SUBQ 10/20/17 09:00 11/17/17 20:59 10/21/17 08:55 Levothyroxine Sodium (Synthroid) 25 mcg DAILY@0630 ORAL 10/20/17 06:30 11/18/17 06:29 10/21/17 06:28 Loperamide HCl (Imodium) 2 mg Q4H PRN ORAL Diarrhea 10/20/17 10:30 11/19/17 10:29 10/21/17 08:43 Metoprolol Tartrate (Lopressor) 12.5 mg Q12HR ORAL 10/20/17 21:00 11/19/17 20:59 10/21/17 08:44 Morphine Sulfate (Morphine Sulfate) 2 mg Q4H PRN IVP Moderate Pain (Pain Scale 4-6) 10/20/17 01:00 10/25/17 16:59 Nebivolol (Bystolic) 2.5 mg Q12HR ORAL 10/20/17 21:00 11/19/17 20:59 10/21/17 08:43 Ondansetron HCl (Zofran) 4 mg Q6H PRN IVP Nausea & Vomiting 10/19/17 23:00 11/17/17 16:59 10/20/17 21:56 Polyethylene Glycol (Miralax) 17 gm DAILYPRN PRN ORAL Constipation 10/20/17 17:00 11/17/17 16:59 Sodium Chloride 1,000 ml @ 50 mls/hr Q20H IV 10/20/17 16:00 11/19/17 15:59 10/20/17 15:40 Temazepam (Restoril) 15 mg HSPRN PRN ORAL Insomnia 10/20/17 17:00 10/25/17 16:59 Neli Shabazz M.D. Oct 21, 2017 11:49
[2017-10-21 12:00] VITALS: BP 137/81
[2017-10-21] MEDS ORDERED: Tubing IV Secondary IV ONE ×2 (13:29)
--- NOTE | 2017-10-21 14:01 | Nephrology Progress Note ---
Assessment/Plan Problem List: (1) Hypertension (2) Anemia (3) Hyponatremia (4) Dehydration (5) Electrolyte imbalance Assessment status: Low na, doubt depletional as Renal parameters WNL- today Na 132 HypoTension on arrival likely Volume depletion, leading to syncope , now HTN ! Vomiting and Diarrhea Low Mag and Low ca Anemia- low Iron A1c elevated: DM Plan Sugg: DC IV adjust bp meds check Kusum U os Uric Acid monitor lytes Vit D Mag and Phos supplement as needed per orders DC planning Subjective ROS Limited/Unobtainable: No Constitutional: Reports: malaise Objective Objective Last 24 Hour Vital Signs Date Time Temp Pulse Resp B/P (MAP) Pulse Ox O2 Delivery O2 Flow Rate FiO2 10/21/17 12:00 98.3 20 137/81 96 Room Air 10/21/17 09:42 97.9 10/21/17 08:44 90 184/104 10/21/17 08:00 90 87 101 10/21/17 08:00 98.0 90 20 184/104 96 Room Air 10/21/17 04:00 158/82 10/21/17 03:45 87 18 Room Air 21 10/21/17 00:00 77 18 160/78 96 Room Air 10/20/17 22:10 95 10/20/17 22:05 92 10/20/17 22:00 83 10/20/17 22:00 160/80 10/20/17 20:56 73 180/79 10/20/17 20:00 97.9 83 19 180/79 97 Room Air 10/20/17 16:52 97.1 10/20/17 16:30 73 20 200/89 10/20/17 15:48 85 160/74 10/20/17 15:36 97.6 85 20 160/74 97 Room Air Intake and Output 10/20/17 10/21/17 19:00 07:00 Intake Total 1420 ml 950.832 ml Balance 1420 ml 950.832 ml Intake Oral 660 ml 360 ml IV Total 760 ml 590.832 ml # Voids 4 3 # Bowel Movements 2 Laboratory Tests 10/21/17 05:45: White Blood Count 5.1, Red Blood Count 3.84L, Hemoglobin 11.5L, Hematocrit 34.5L , Mean Corpuscular Volume 90, Mean Corpuscular Hemoglobin 29.9, Mean Corpuscular Hemoglobin Concent 33.2, Red Cell Distribution Width 13.0, Platelet Count 229, Mean Platelet Volume 6.2L, Neutrophils (%) (Auto) 49.9, Lymphocytes ( %) (Auto) 31.1, Monocytes (%) (Auto) 15.9H, Eosinophils (%) (Auto) 2.7, Basophils (%) (Auto) 0.4, Sodium Level 132L, Potassium Level 3.7, Chloride Level 99, Carbon Dioxide Level 25, Anion Gap 8, Blood Urea Nitrogen 7, Creatinine 0.8, Estimat Glomerular Filtration Rate , Glucose Level 91, Uric Acid 3.8, Calcium Level 7.1L, Phosphorus Level 2.5, Magnesium Level 1.7L, Total Bilirubin 0.4, Aspartate Amino Transf (AST/SGOT) 15, Alanine Aminotransferase ( ALT/SGPT) 18, Alkaline Phosphatase 43L, C-Reactive Protein, Quantitative 1.1H, Total Protein 5.7L, Albumin 2.7L, Globulin 3.0, Albumin/Globulin Ratio 0.9L Height (Feet): 5 Height (Inches): 0.00 Weight (Pounds): 170 General Appearance: no apparent distress Objective no change JAC ZARAGOZA Oct 21, 2017 14:01
--- NOTE | 2017-10-24 11:08 | Discharge Summary ---
Discharge Summary Hospital Course Date of Admission Oct 18, 2017 at 16:22 Date of Discharge Oct 21, 2017 at 13:30 Admitting Diagnosis SYNCOPE,HYPOTENSION HPI Ada Hero is a 86 year old female who was admitted on Oct 18, 2017 at 16:22 for Syncope/Hypotension Hospital Course dc summary #[id number] Discharge Medications New Medications: Ondansetron* (Zofran*) 4 Mg Tablet 4 MG ORAL Q6H PRN, #20 TAB Continued Medications: Bysto (Bystolic) 2.5 Mg Tab 2.5 MG ORAL BID for 30 Days, TAB Levothyroxine Sodium* (Synthroid*) 25 Mcg Tab 25 MCG ORAL DAILY@0630, #30 TAB Discharge Discharge Disposition Patient was discharged to Home (01) Discharge Diagnoses: Discharge Instructions Discharge Instructions Follow up with: PMD in 1 week Call MD/Return to Hospital if: n/v/ abd pain, diarrhea Activity: resume normal activities, as tolerated Shawna Diaz NP ([facility]anchtein) Oct 24, 2017 11:08
--- NOTE | 2017-10-24 18:45 | Discharge Summary 2 SIG ---
DATE OF ADMISSION: 10/18/2017 DATE OF DISCHARGE: 10/21/2017 REASON FOR ADMISSION: 86-year-old female with past medical history significant for hypertension, asthma, and hypercholesteremia presented to emergency department with nausea, vomiting, and diarrhea for one day. She was incontinent of urine and stool. She apparently had a syncopal episode. The paramedics found her being hypotensive with systolic blood pressure of 80s. The patient was given IV fluids by paramedics. Blood pressure responded to IV bolus but upon arrival to the ED blood pressure again - 89/40, afebrile, pulse oximetry stable on room air. No leukocytosis. Stable hemoglobin and hematocrit. Low sodium -128 noted with stable renal parameters. Troponin negative. Urinalysis revealed pyuria and occasional bacteria. EKG revealed normal sinus rhythm. No acute ischemic changes. Chest x-ray revealed evidence of old right shoulder fracture but no acute cardiopulmonary pathology. The patient was admitted with diagnoses of syncope, hyponatremia, gastroenteritis, hypotension, and dehydration. HOSPITAL STAY: The patient was admitted. ID, Cardiology and Nephrology consults were requested. The patient was started on the IV fluids. The patient was initially on the monitored floor. Blood pressure improved with IV fluids. The patient was started on antihypertensive medications after blood pressure stabilized. Syncope was likely secondary to volume depletion. The patient had a positive orthostatic blood pressure on 10/18/2017, which improved on 10/19/2017. Dental Billing Specialist closely followed. On telemetry consistently with sinus rhythm. Troponin x2 were negative. No evidence of arrhythmia. The patient was ruled out for acute MN. The patient was transferred to medical surgical floor. The patient declined echocardiogram. Infectious diseases consult closely followed the patient. Stool for C. difficile was negative. Stool culture was negative. Blood cultures were negative. Influenza screen was negative. Urine culture revealed mixed gram-positive organism. The patient was initially on empiric antibiotics and Tamiflu, which were discontinued. Per ID recommendations, keep the patient off antibiotics and observe closely. The patient had no leukocytosis, afebrile, clinically improved, no evidence of infection, GI closely followed the patient. As mentioned above, stool C. diff was negative. Imodium was given symptomatically. The patient was on the low residue diet. According to the GI, the patient likely had a viral gastroenteritis. Diarrhea, nausea and vomiting all resolved. Per GI, no need for the GI procedure on this admission. Anemia workup was consistent with anemia of chronic disease. Hemoglobin and hematocrit remained on the baseline. Electrolytes were closely monitored and replaced as needed. Sodium improved from 128 to 132. Hyponatremia workup was initiated by associate financial analyst. Per associate financial analyst, he doubt that hyponatremia was due to the depletion since the renal parameters were stable. Further workup for hyponatremia and close monitoring of electrolytes as an outpatient. DVT prophylaxis provided. TSH was within normal limits. Current dose of thyroid replacement was continued. X-ray of the left knee revealed no evidence of acute fracture. Pain management was provided. The patient was working with physical and occupational therapists. Hemoglobin A1c -6.5. The patient was not aware that she had diabetes. Diet changed to diabetic. The patient was reluctant to start anti-glycemic in the hospital and preferred to be seen by primary medical doctor for initiation of diabetic management. Fasting blood sugar in the hospital runs between 120 and 140. The patient was stable for discharge. FINAL DIAGNOSES: 1. Syncope likely secondary to dehydration due to gastroenteritis. 2. Hypotension (secondary to volume depletion due to dehydration caused by diarrhea and vomiting). 3. Diarrhea, resolved. 4. Possible viral gastroenteritis. 5. Hyponatremia, improved. 6. Anemia of chronic disease. 7. Dementia. 8. Hypothyroidism. 9. Left knee pain. 10. Diabetes mellitus, new onset. DISCHARGE MEDICATIONS: See medication reconciliation list. DISCHARGE INSTRUCTIONS: The patient was discharged home. Follow up with primary medical doctor for close monitoring of electrolytes and workup for hyponatremia if persist , and initiating antidiabetic management. Jennifer Cisneros M.D. Shawna Kabaerik N.Olman DR: SELIN JOB#: [id number] CC: SAIGE
[2017-10-26] MEDS ORDERED: Vitamin D 50,000 units cap ORAL SCH (14:00)
== END 2017-10-21 13:30 | disposition home or self-care (01) | DRG 641 ==
LOC: EDBD 14:05 → EMR 14:40 → 2E 16:22 → EDBEDREQ 16:34 → 3E 10-19 18:50
DX: E86.0 Dehydration (principal); A08.4 Viral intestinal infection, unspecified; I95.9 Hypotension, unspecified; E86.9 Volume depletion, unspecified; E87.1 Hypo-osmolality and hyponatremia; F03.90 Unspecified dementia, unspecified severity, without behavioral disturbance, psychotic disturbance, mood disturbance, and anxiety; E11.9 Type 2 diabetes mellitus without complications; R15.9 Full incontinence of feces; I10 Essential (primary) hypertension; D50.9 Iron deficiency anemia, unspecified; E03.9 Hypothyroidism, unspecified; H91.93 Unspecified hearing loss, bilateral; M25.562 Pain in left knee; M81.0 Age-related osteoporosis without current pathological fracture; E78.5 Hyperlipidemia, unspecified; R32 Unspecified urinary incontinence; R19.7 Diarrhea, unspecified; M84.421G Pathological fracture, right humerus, subsequent encounter for fracture with delayed healing
CPT/HCPCS: 36415; 51701; 71045; 80053; 80202; 81003; 82533; 82550; 82607; 82728; 82746; 83036; 83540; 83550; 83690; 83735; 83880; 83930; 84100; 84439; 84443; 84481; 84484; 84550; 85025; 85610; 85730; 86140; 86710; 87040; 87045; 87086; 87205; 87324; 93005; 94664; 99285; J2405